=== PATIENT | female | born 1980 | race Caucasian/White ===

== ENCOUNTER 2022-06-12 12:48 | Outpatient (CLI) | payer OTHER, SELFPAY | END 2022-06-12 12:49 | disposition home or self-care (01) | LOC: RAD 12:49 | PROVIDERS: PCP Family Medicine; Visit Provider Internal Medicine Cardiovascular Disease | DX: R00.0 Tachycardia, unspecified (principal); I34.0 Nonrheumatic mitral (valve) insufficiency | CPT/HCPCS: 93306 ==

== ENCOUNTER 2022-06-29 08:04 | Outpatient (CLI) | payer OTHER, SELFPAY ==
--- NOTE | 2022-06-29 08:15 | CRLHL7_ITS ---
For Patients: As a result of the Century Cures Act, medical imaging exams and procedure reports are released immediately into your electronic medical record. You may view this report before your referring provider. If you have questions, please contact your health care provider. INDICATION: Abnormal uterine bleeding COMPARISON: none TECHNIQUE: 2D reese scale and color Doppler images were acquired of the pelvis using a transabdominal and transvaginal approach. FINDINGS: Sonographic images demonstrate a mildly enlarged uterus with a smooth outer contour. Uterus measures 11.3 cm in length by 6.1 cm in AP diameter by 7.4 cm in transverse dimension. The myometrium has a heterogeneous echotexture. The endometrial lining appears thickened and measures 20 mm in composite thickness. Anterior fundal intramural fibroid noted measuring 2.3 x 2.2 x 2.1 cm. The right ovary measures 2.8 x 2.0 x 2.4 cm in size and the left ovary measures 3.8 x 2.0 x 2.2 cm. The ovaries demonstrate normal arterial and venous blood flow on color Doppler analysis. There are no suspicious fluid collections within the cul-de-sac. A mildly complex left ovarian cyst is noted measuring 1.9 cm. Additional hyperechoic focus measuring 8 millimeters within the left ovary. IMPRESSION: Mildly enlarged and heterogeneous uterus with an intramural fibroid measuring 2.3 cm. The endometrium is diffusely thickened and measures 2 centimeters. Dictated by Kam Gould MD @ 06/29/2022 9:17:25 AM (Electronically Signed)
== END 2022-06-29 08:05 | disposition home or self-care (01) ==
PROVIDERS: PCP Family Medicine; Visit Provider Obstetrics & Gynecology
DX: N93.9 Abnormal uterine and vaginal bleeding, unspecified (principal); D25.1 Intramural leiomyoma of uterus
CPT/HCPCS: 76830; 76856

== ENCOUNTER 2022-06-30 10:10 | Emergency (ER) | payer OTHER, SELFPAY ==
[2022-06-30 10:30] VITALS: BP 135/92; PULSE 158; RESP 20; TEMP 36.3; O2SAT 96; BMI 40.0
--- NOTE | 2022-06-30 10:56 | ED.NURSE ---
ekg done, shows svt 150-160. pt placed on heart monitor. #20 sl placed R ac, blood drawn off iv start.
[2022-06-30 11:00] VITALS: BP 103/73; PULSE 158; RESP 12; O2SAT 98
--- NOTE | 2022-06-30 11:13 | ED_ITS ---
HPI - General Adult General Chief complaint: Arrhythmia/Palpitations Stated complaint: Heart palpitations Time Seen by Provider: 06/30/22 11:03 Source: patient History of Present Illness HPI narrative: Patient is a 42 year old woman with a longstanding history palpitations, since childhood. She says her mom and sister have the same problem, and her son now has similar problems. She is currently wearing a ZIO patch to further delineate the problem. She started having palpitations a couple hours prior to presentation, she was told by her regional vice president life sales the next time she had this to come in to get an EKG. She has never had an EKG capturing her palpitations prior to this. She says that she has never had syncope, does not get chest pain, but she does get occasionally lightheaded, gets sweaty and a little weak feeling. Does not get significantly short of breath. Sometimes these symptoms lasted couple of minutes, sometimes 8 or 9 hours. She is sometimes able to relieve them by lifting her arms over her head, Valsalva maneuver, deep breaths. She did not try those prior to coming in because she wanted to be able to get an EKG, but tells me since getting an EKG she has tried those in they have not helped. She denies any recent illness in the past couple of days, has not had any fevers or chills, chest pain or shortness of breath, vomiting or diarrhea, black or bloody stools, urinary symptoms. She has never had any medical intervention for these symptoms such as adenosine. Related Data Home Medications Medication Instructions Recorded Confirmed labetalol 200 mg tablet mg 06/30/22 levothyroxine 100 mcg tablet mcg 06/30/22 Previous Rx's Medication Instructions Recorded ruxolitinib 1.5 % topical cream 1 applic topical BID #60 grams 06/30/22 (Opzelura) Allergies Allergy/AdvReac Type Severity Reaction Status Date / Time No Known Allergies Allergy Verified 06/30/22 08:30 Review of Systems Status of ROS: Reports: 10 or more systems reviewed and unremarkable except as noted in History and below [facility] Medical History (Updated 06/30/22 @ 12:11 by Evy Frank MD) Hector's disease Surgical History (Updated 05/28/22 @ 11:05 by Galen Larose) History of dilation and curettage (2008) Family History (Updated 05/28/22 @ 11:06 by Galen Larose) Mother Cardiac arrhythmia Social History (Updated 05/28/22 @ 11:07 by Galen Larose) Narrative: does not drink alcohol does not have regular exercise regimen , 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 In general, an alert, nontoxic woman. Breathing easily. Head: Normocephalic, atraumatic. Eyes: Pupils are equal reactive. Extraocular movements are full. Conjunctivae are normal. ENT: Mucous membranes are moist. Throat is normal. Neck: Supple without lymphadenopathy. Heart: Tachycardic and regular without murmur. Lungs: Clear bilaterally. No increased work of breathing, crackles or wheezes. Abdomen: Soft and nontender. No organomegaly. Extremities: Well perfused. No edema. No calf tenderness. Pulses intact. Neurologic: Patient is alert and oriented to person and place. Speech is fluent. Face is symmetric. Moves all extremities equally. Affect: Normal. Skin: Warm and dry. Well perfused. Const: Vital Signs, click to edit/add: Vital Signs - 24 hr 06/30/22 10:30 06/30/22 11:00 06/30/22 11:30 Temperature 97.4 F L Pulse Rate [Pulse Oximeter] 158 H 158 H 152 H Respiratory Rate 20 12 Blood Pressure [Le ft Upper Arm] 103/73 100/88 Blood Pressure [Ri ght Upper Arm] 135/92 H Pulse Oximetry 96 98 99 Oxygen Delivery Me thod Room Air Room Air Room Air 06/30/22 11:36 06/30/22 11:36 Temperature Pulse Rate [Pulse Oximeter] 98 98 Respiratory Rate Blood Pressure [Le ft Upper Arm] 133/83 133/83 Blood Pressure [Ri ght Upper Arm] Pulse Oximetry 97 97 Oxygen Delivery Me thod Room Air Room Air Documenting provider has reviewed patient's vital signs: yes Course Course Hospital Course: On arrival, patient was placed on monitor and pulse oximetry. An EKG was done which by my review shows supraventricular tachycardia with a ventricular rate of 151 beats per minute. There are nonspecific ST changes but no acute signs of ischemia. Labs ordered including a CBC, metabolic panel, TSH and troponin. These are pending. I reviewed her records. She is scheduled to follow-up with Cardiology after her ZIO patch, which is to be removed on Wednesday of this week. Given that she has been in SVT now for a couple of hours, I think it is reasonable to try adenosine at this time. Patient was maintained on monitor, initially we gave 6 mg of adenosine, which slowed her rate to about 125 beats per minute, but she remained in a supraventricular tachycardia. I did not see any evidence of flutter waves at that rate. I elected to try 12 mg of adenosine. With 12 mg, she had some ventricular ectopy for about 8 beats, then converted to a sinus rhythm. A repeat EKG showed a normal sinus rhythm at a ventricular rate of 91 beats per minute. No acute ST segment changes by my review. Labs were normal in terms of her CBC and metabolic panel. Her troponin is 0. TSH is pending at this time. She is feeling well. I am going to let her go home and I will call her if the TSH is abnormal at all. She does take Synthroid at baseline. She also takes labetalol. Will have her continue that and have her follow up with Cardiology as planned. If she has recurrent episodes she can certainly return if they are persistent and not responding to her usual measures. If she has more severe symptoms such as chest pain, severe shortness of breath, fainting she should return regardless. Vital Signs Vital signs: Initial Vital Signs Temperature 97.4 F L 06/30/22 10:30 Temperature Source Temporal Artery Scan 06/30/22 10:30 Pulse Rate 158 H 06/30/22 10:30 Respiratory Rate 20 06/30/22 10:30 Respiratory Depth Normal 06/30/22 10:30 Blood Pressure 135/92 H 06/30/22 10:30 Blood Pressure Mean 106 06/30/22 10:30 Blood Pressure Position Supine 06/30/22 10:30 Pulse Oximetry 96 06/30/22 10:30 Oxygen Delivery Method 06/30/22 10:30 Vital Signs Temperature 97.4 F L 06/30/22 10:30 Pulse Rate 158 H 06/30/22 10:30 Respiratory Rate 20 06/30/22 10:30 Blood Pressure 135/92 H 06/30/22 10:30 Pulse Oximetry 96 06/30/22 10:30 Oxygen Delivery Method 06/30/22 10:30 Temperature 97.4 F L 06/30/22 10:30 Pulse Rate 98 06/30/22 11:36 Respiratory Rate 12 06/30/22 11:00 Blood Pressure 133/83 06/30/22 11:36 Pulse Oximetry 97 06/30/22 11:36 Oxygen Delivery Method 06/30/22 11:36 Medical Decision Making Lab Data Labs: Lab Results 06/30/22 06/30/22 06/30/22 Range/Units 10:55 10:55 10:55 WBC 5.80 (4.50-11.00) K/uL RBC 5.02 (4.00-5.20) m/uL Hgb 13.6 (12.0-16.0) gm/dL Hct 40.8 (33.0-51.0) % MCV 81 (80-100) fL MCH 27 (26-34) pg MCHC 33 (32-36) gm/dL RDW Coeff of Yaneth 14.8 (11.5-15.5) % Plt Count 268 (140-440) K/uL Neut % (Auto) 65.0 (42.0-72.0) % Lymph % (Auto) 23.3 (20-44) % Alexander % (Auto) 8.4 (0.0-11.0) % Eos % (Auto) 2.8 (0.0-7.0) % Baso % (Auto) 0.3 (0.0-3.0) % Neut # (Auto) 3.77 (1.7-7.0) K/uL Lymph # (Auto) 1.35 (0.90-2.90) K/uL Alexander # (Auto) 0.50 (0.00-0.90) K/UL Eos # (Auto) 0.16 (0.00-0.50) K/uL Baso # (Auto) 0.02 (0.00-0.30) K/uL Abs Immat Gran (auto) 0.01 (0.00-0.30) K/uL Sodium 140 (135-149) mmol/L Potassium 3.8 (3.6-5.1) mmol/L Chloride 108 (96-114) mmol/L Carbon Dioxide 23 (20-32) mmol/L BUN 14 (5-24) mg/dL Creatinine 0.7 (0.5-1.5) mg/dL Estimated Creat Clear 97.01 Estimated GFR 110 ml/min Glucose 104 (60-115) mg/dL Calcium 9.1 (8.4-10.6) mg/dL TSH 3.290 (0.270-4.200) uIU/mL POC Troponin I (0.01-0.04) ng/ml 06/30/22 Range/Units 10:55 WBC (4.50-11.00) K/uL RBC (4.00-5.20) m/uL Hgb (12.0-16.0) gm/dL Hct (33.0-51.0) % MCV (80-100) fL MCH (26-34) pg MCHC (32-36) gm/dL RDW Coeff of Yaneth (11.5-15.5) % Plt Count (140-440) K/uL Neut % (Auto) (42.0-72.0) % Lymph % (Auto) (20-44) % Alexander % (Auto) (0.0-11.0) % Eos % (Auto) (0.0-7.0) % Baso % (Auto) (0.0-3.0) % Neut # (Auto) (1.7-7.0) K/uL Lymph # (Auto) (0.90-2.90) K/uL Alexander # (Auto) (0.00-0.90) K/UL Eos # (Auto) (0.00-0.50) K/uL Baso # (Auto) (0.00-0.30) K/uL Abs Immat Gran (auto) (0.00-0.30) K/uL Sodium (135-149) mmol/L Potassium (3.6-5.1) mmol/L Chloride (96-114) mmol/L Carbon Dioxide (20-32) mmol/L BUN (5-24) mg/dL Creatinine (0.5-1.5) mg/dL Estimated Creat Clear Estimated GFR ml/min Glucose (60-115) mg/dL Calcium (8.4-10.6) mg/dL TSH (0.270-4.200) uIU/mL POC Troponin I 0.00 L (0.01-0.04) ng/ml Discharge Plan Discharge Clinical Impression: Supraventricular tachycardia Patient Disposition: Home, Self-Care Condition: Improved Instructions: Supraventricular Tachycardia (ED) Additional Instructions: Follow-up with Cardiology as planned. If you have recurrent episodes that do not respond to usual measures, you can return to the emergency department for additional treatment. If you have severe symptoms such as chest pain, significant shortness of breath, fainting, you should return. Prescriptions: No Action Opzelura 1.5 % cream 1 applic topical BID Qty: 60 3RF labetalol 200 mg tablet Label Comments: TAKE ONE TABLET BY MOUTH TWICE DAILY levothyroxine 100 mcg tablet Label Comments: TAKE ONE TABLET BY MOUTH ONE TIME DAILY Follow Up/Referrals: Gayla Hernandez MD [Primary Care Provider] - Stand Alone Forms: Runa Info Instructions
[2022-06-30 11:22] LABS: Basophils Absolute Auto 0.02 K/uL (0.00-0.30); Basophils Percent Auto 0.3 % (0.0-3.0); Eosinophils Absolute Auto 0.16 K/uL (0.00-0.50); Eosinophils Percent Auto 2.8 % (0.0-7.0); Hematocrit 40.8 % (33.0-51.0); Hemoglobin* 13.6 gm/dL (12.0-16.0); Immature Granulocytes Abs Auto 0.01 K/uL (0.00-0.30); Lymphocytes Absolute Auto 1.35 K/uL (0.90-2.90); Lymphocytes Percent Auto 23.3 % (20-44); Mean Corpuscular HGB Conc 33 gm/dL (32-36); Mean Corpuscular Hemoglobin 27 pg (26-34); Mean Corpuscular Volume 81 fL (80-100); Monocytes Percent Auto 8.4 % (0.0-11.0); Neutrophils Absolute Auto 3.77 K/uL (1.7-7.0); Platelet Count* 268 K/uL (140-440); RDW Coefficient of Variation % 14.8 % (11.5-15.5); Red Blood Count 5.02 m/uL (4.00-5.20)
[2022-06-30] MEDS: 0.9 % SODIUM CHLORIDE 1000 ml 1,000 ML IV (11:26)
[2022-06-30] MEDS: ADENOSINE 6 MG/2ML INJ IVP (11:27)
[2022-06-30 11:30] VITALS: BP 100/88; PULSE 152; O2SAT 99
--- NOTE | 2022-06-30 11:30 | ED.NURSE ---
6 mg adenosine brought hr director of accreditation 127- then hr increased again to 154.
[2022-06-30 11:32] LABS: Slide Review Reflex No
[2022-06-30] MEDS: ADENOSINE 6 MG/2ML INJ 12 MG IVP (11:35)
[2022-06-30 11:36] VITALS: BP 133/83; PULSE 98; O2SAT 97
[2022-06-30 11:46] LABS: Chloride* 108 mmol/L (96-114); Sodium* 140 mmol/L (135-149)
[2022-06-30 11:47] LABS: Potassium* 3.8 mmol/L (3.6-5.1)
[2022-06-30 11:49] LABS: Creatinine* 0.7 mg/dL (0.5-1.5); Est. Creatinine Clearance* 97.01; Estimated Glomerular Filt Rate 110 ml/min
[2022-06-30 11:50] LABS: Blood Urea Nitrogen* 14 mg/dL (5-24); Calcium* 9.1 mg/dL (8.4-10.6); Carbon Dioxide* 23 mmol/L (20-32); Glucose* 104 mg/dL (60-115)
--- NOTE | 2022-06-30 11:56 | ED.NURSE ---
did respond to 12 mg adenosine. hr showed 8 beats of v tach and then converted to nsr at 64.
== END 2022-06-30 12:25 | disposition home or self-care (01) ==
PROVIDERS: Emergency Provider Emergency Medicine; PCP Family Medicine
DX: I47.1 Supraventricular tachycardia (principal)
CPT/HCPCS: 36415; 80048; 84443; 84484; 85025; 93005; 96374; 96375; 99284; J0153; J7030

== ENCOUNTER 2022-08-06 10:22 | Outpatient (CLI) | payer OTHER, SELFPAY ==
--- OUTSIDE RECORDS SUMMARY | 2022-08-06 08:35 | XMS_ITS | Clinical Summary ---
:1980 Author Organization [employer] [facility] [place] [address] Care Team Providers Name Role Phone Gayla Hernandez MD Primary Care Provider [phone] Allergies No known active allergies Medications Medication Sig Dispensed Refills Start Date End Date Status ferrous sulfate 325 Take 1 0 10/02/2019 Active mg delayed release tablet by tablet mouth once daily with a meal. levothyroxine Take 100 mcg 0 05/29/2022 Ac tive (SYNTHROID) 100 mcg by mouth tablet once daily. Tranexamic Acid 650 TAKE 2 0 07/08/2022 Active mg tab TABLETS BY MOUTH THREE TIMES DAILY FOR 5 DAYS DURING MENSES. labetaloL Take 200 mg 0 05/14/2022 Active (TRANDATE) 200 mg by mouth two tablet times daily. amLODIPine Take 1 60 Tablet 1 08/03/2022 Active (NORVASC) 5 mg Tablet (5 tabletIndications: mg) by mouth HTN (hypertension) once daily. levothyroxine Take 1 90 tablet 3 07/13/2018 Disco ntinued (SYNTHROID) 50 mcg tablet by 2 ( *Patient states tabletIndications: mouth before no longer Hypothyroidism breakfast. taki ng/Not on (acquired) sending f acility list) aspirin chewable 81 Take 1 0 08/15/2019 Discontinued mg chewable tablet tablet by 2 ( *Patient states mouth once no longer daily with a taking/ Not on meal. sending fa cility list) Take 1 0 10/02/2019 Discontin ued vitamin-folic acid tablet by 2 ( *Patient states 1 mg ( RX) mouth once no longer tablet/capsule daily. takin g/Not on sending fa cility list) verapamil (VERELAN) Take 1 30 capsule 5 11/16/2019 07/08/20 2 Discontinued 120 mg capsule by 2 (*Discont inued Controlled-Release mouth every by another capsuleIndications: morning. clinician) induced hypertension, verapamiL (VERELAN) Take 1 30 Capsule 6 07/08/2022 08/04/20 2 Discontinued 120 mg Capsule (120 2 (*IP Controlled-Release mg) by mouth Discontinued) capsuleIndications: every Tachycardia morning. Active Problems Problem Noted Date Recurrent loss in patient in second trimester, 07/10/2019 antepartum Overview: Recurrent loss (RPL 6 SAB's): negative thrombophilia lab workup (December 2018) Morbid obesity with BMI of 40.0-44.9, adult 07/10/2019 Overview: Normal appearing Level II sonogram /Feta l echocardiogram (MPP: 07.10.2019 = 20w0d) Elderly multigravida in second trimester 07/10/2019 Overview: Declined serum aneuploidy screening History of gestational hypertension 07/10/2019 High risk due to recurrent loss, s econd trimester 05/17/2019 Overview: Formatting of this note is dif ferent from the original. Component Latest Ref Rng & Units 10/31/2019 Vaginal/Rectal OB Strep B PCR Negative Estimated Date of Delivery: 11/27/19 Patient's last menstrual period was 04/0 11/2018 (exact date). Last Tdap- Declined Last Flu vaccine- Declined Glucose (GTT) result- Component Latest Ref Rng & Units 08/15/2019 HEMOGLOBIN 12.0 - 16.0 g/dL 11.0 (L) MCV 80 - 100 fL 81 TSH 0.35 - 4.94 uIU/mL 2.34 GLUCOSE,GESTATIONAL 65 - 139 mg/dL 115 20 week US:IMPRESSION: Intrauterine at 20w 0d. presentation is Variable. EFW 334 grams, percentile: 52. Growth parameters and estimated we ight are appropriate for gestational age. No major structural anomalies identified . No markers for aneuploidy identified. The echocardiogram was read by [facility] as normal. The amniotic fluid volume appears normal . Placental location: Fundal, right latera l There is no evidence of placenta previa. The cervical length is 3.9 cm. No Known Allergies OB History Para Term AB Living 16 6 6 0 9 6 SAB TAB Ectopic Multiple Live Births 9 0 0 0 6 # Outcome Date GA Lbr Herb/2nd Weight Sex Delivery Anes PTL Lv 16 Current 15 Term 07/10/16 38w2d Vag JAVID 14 10/2014 4w0d 13 10/2013 5w0d 12 04/2012 14w0d 11 05/2011 13w0d 10 03/2011 6w0d 9 SAB 09/2010 19w0d 8 Term 09/20/09 4.05 kg (8 lb 15 oz) F V ag N JAVID 7 10/2008 17w0d 6 SAB 05/2008 10w0d 5 SAB 08/2007 8w0d 4 Term 09/10/06 4.05 kg (8 lb 15 oz) F V ag N JAVID 3 Term 04/25/04 40w0d 4.08 kg (9 lb) M V ag N JAVID 2 Term 02/28/02 40w0d 3.52 kg (7 lb 12 o z) M Vag N JAVID 1 Term 11/18/00 40w0d 4.17 kg (9 lb 3 oz ) M Vag N JAVID Create lab flowsheet for OB labs- Component Latest Ref Rng & Units 05/01/2019 019 05/01/2019 4:31 PM 4:31 PM 4:31 PM ANTIBODY SCREEN Negative Negative SPECIMEN EXPIRATION DATE/TIME 05/04/19 23:59 HEMOGLOBIN 12.0 - 16.0 g/dL 11.9 (L) MCV 80 - 100 fL 78 (L) RUBELLA IGG ANTIBODY Positive 6.44 HEMOGLOBIN A1C SCREENING <=6.4 % 5.2 ABORH O Rh Positive HBSAG Nonreactive Nonreactive HEPATITIS C ANTIBODY Non-Reactive Non-Reactive HIV-1/HIV-2 ANTIBODY Non-Reactive Non-Reactive TREPONEMA PALLIDUM Negative Negative Past Medical History: Diagnosis Date ? ? Hypertension in ? ? Hypothyroidism (acquired) 03/02/2017 ? ? Supervision of other high risk pregnancies, first trimester 12/13/2015 Past Surgical History: Procedure Laterality Date ? ? DILATION AND CURETTAGE x2 after incomplete abs No data on file. Problems (from 05/01/19 to pre sent) No problems associated with this episod e. Nini Fitch, RNC.....05/17/2019 7:52 AM Hypothyroidism (acquired) 03/02/2017 Overview: +TPO AB; quit taking medicine. Restartin g meds 10/06/2017, advised to have TSH checked in 6-8 weeks Preexisting hypertension complicating , antep artum, second 07/14/2016 trimester Overview: Not currently on low dose ASA prophylaxi s Not currently on antihypertensive regime n Resolved Problems Problem Noted Date Resolved Date MPP consult 01/09/2016 09/27/2017 Overview: REASON FOR CONSULT: AMA, recurrent pregn sadi losses GESTATIONAL AGE: ZACH: 07/22/16 /PARITY: TODAY'S APPOINTMENT: U/S and consult PRIMARY DIAGNOSIS: History of 9 SABs, 5 term deliveries LAST GROWTH: Viability U/S 01/06/16, 12w 1d Beta HcG n oted to be decreasing Viability U/S 12/17/15, 8w 6d TESTING PLANS: REFERRING PHYSICIAN & PHONE: Dr Chayo Anna [facility] ([phone]) SPECIALISTS & PHONE: HENNA: CARE COORDINATION: MEDS: Progesterone BLOOD TYPE/LABS: O positive GENETICS: declined PLAN OF CARE: state, incidental 12/26/2015 09/27/2017 Overview: Dr Dan for baby Declines flu shot 12/26/2015 Supervision of other high risk pregnancies, first trimester 12/13/2015 09/27/2017 Overview: Group B Strep NEGATIVE 06/22/2016 Wishes delayed cord clamping Declines Hepatitis vaccine, Vitamin K, e ye ointment. RECURRENT LOSS W/O CURRENT 06/10/2011 09/27/2017 Multiparity 06/10/2011 09/27/2017 ANEMIA, SECONDARY TO ACUTE BLOOD LOSS 06/10/2011 Encounters Date Type Specialty Care Team Description 08/03/2022 Anesthesia Event Cb Espana Jr., Tito Simpson, PECAN GROWER 08/03/2022 - Hospital Encounter Raheem Leyva NRT (AV ced re-entry tachycardia) (HC) (Primary Dx); 08/04/2022 MD Rafa HTN (hypertension) Rafa Vivar MD Discharge Summary - Jonel Wayyajaira ANNETTE Hanson - 08/03/2022 6:21 PM CDT [facility] Discharge Summary DOA: 08/03/2022 DOD: 08/03/2022 PRIMARY CARE PROVIDER Gayla Hernandez MD HOSPITAL COURSE Chayo Ornelas is a pleasan t 42 y.o. female with documented SVT, hypothyroidism, obesity, and hypertension. Ms. Ornelas notes a longstanding history of palpitations. Aout 1-2 times a month, she will get more profound palpitations w ith a heart rates in the 170-200 bpm range. During this time, she will feel palpitations described as a hard heartbeat. She will feel palpitations into her neck and get light headed to the point she has to sit down. She denies any history of syncope. Following further discussion of management options in the Arrhythmia Clinic, she elected to proceed with an EP study and possible ablation. On 08/03/2022, Ms. Ornelas unde rwent an EP study and ablation for typical atrioventricular ced reentrant tachycardia. S: Resting in bed. Denies co ncern. EXAM BP 155/91 Pulse 84 Temp (!) 96.5 ??F (35.8 ??C) (Tympanic) Resp 18 Ht 1.676 m (5' 6) Wt 113.2 kg (249 lb 8 oz) LMP 07/10/2022 SpO2 99% BMI 40.27 kg/m?? Patient Vitals for the past 72 hrs: Weight 08/03/22 1353 113.2 kg (249 lb 8 oz) Cor: Regular rate and rhythm with no noted murmur. Resp: CTA ellis. Ext: Pulses present and equa l ellis. No LE edema. Skin: WDI. Incision: Right femoral acce ss site c/d/i. No bleeding/hematoma. Neurologic: A&O x3. DIAGNOSTICS Telemetry (personally review ed): SR, VR 80s Echocardiogram 06/12/2022 Final Impressions: 1. Normal LV size, mildly i ncreased wall thickness, normal function with an estimated EF of 65 - 70%. 2. Right ventricular cavity size is normal, global systolic RV function is normal. 3. The mitral valve is norm al, mild mitral regurgitation. 4. Normal estimated PA and central venous pressures. Labs: Recent Labs 08/03/22 1400 WBC 6.8 RBC 4.54 HGB 12.7 HCT 39.0 MCV 86 MCH 28.0 MCHC 32.6 PLT 231 MPV 10.2 Recent Labs 08/03/22 1400 SODIUM 137 POTASSIUM 3.6 CHLORIDE 106 [id number] 22 BUN 13 CREATININE 0.80 CALCIUM 8.9 GLUCOSE 87 Recent Labs 08/03/22 1400 PLT 231 DISCHARGE MEDICATIONS Current Discharge Medication List STOP taking these medication s verapamiL (VERELAN) 120 mg Controlled-Release capsule Comments: Reason for Stopping: START taking these medicatio ns Details amLODIPine (NORVASC) 5 mg ta blet Take 1 Tablet (5 mg) by mouth once daily. Associated Diagnoses: HTN ( hypertension) CONTINUE these medications w [facility] have NOT CHANGED Details ferrous sulfate 325 mg delay ed release tablet Take 1 tablet by mouth once daily with a meal. labetaloL (TRANDATE) 200 mg tablet Take 200 mg by mouth two times daily. levothyroxine (SYNTHROID) 10 0 mcg tablet Take 100 mcg by mouth once daily. Tranexamic Acid 650 mg tab T MIKHAIL 2 TABLETS BY MOUTH THREE TIMES DAILY FOR 5 DAYS DURING MENSES. IMPRESSION SVT - 08/03/2022: SP ablation fo r typical AVNRT Hypertension Hypothyroidism Obesity Hypertension PLAN 1. Discontinue verapamil 2. Start amlodipine 5 mg maikel ly 3. Continue remainder of zuleima or to admission pharmacologic agents 4. Follow up with primary ca re provider in 5-7 days for femoral access site assessment 5. Follow up in the Arrhythm ia Clinic in 3-4 months 6. Anticipate discharge home later this evening (~ 2100) pending ambulation and femoral access site stability Destinee Way NP [facility] Cardiac Electrophysiology 08/03/2022 Travel 07/30/2022 Telephone Chelsea Baker EP Pro cedure RN 07/29/2022 Nurse/Clinic Staff Only Test ing (Pre-procedure COVID test/) 07/29/2022 Travel 07/22/2022 Telephone Raheem Leyva Question s MD Rafa 07/21/2022 Office Visit Raheem Leyva Other (I nitial Office MD Rafa Visit- Ref Dr. Oswaldo STONEP dx: highly symptomatic SVT refractory to l abetalol: consideration o f ablation (probable AVNRT , AVRT)//PCP- Gayla Mccarthy MD ) 07/21/2022 Travel 07/10/2022 Travel 07/02/2022 Telephone Edinson Chacon Results (ZI O/) MD Bal 06/23/2022 Telephone Edinson Chacon Results (Ec ho/) MD Bal 06/12/2022 Orders Only <No scans attac hed> 06/05/2022 Office Visit Edinson Chacon MD 06/05/2022 Orders Only Renita Hercules <No scans stacie ched> 05/14/2022 Lab Requisition Gayla Hernandez MD from Last 3 Months Immunizations Name Administration Dates Next Due Influenza A (H1N1), Inactivated (Age >=3 Years) 09/18/2009 Influenza, IIV3 (Age >=3 years) 09/22/2007, 08/25/2004 Family History Medical History Relation Name Comments Good Health Brother Cancer-prostate Father Heart Disease Father Hypertension Father Good Health Maternal Grandfather Good Health Maternal Grandmother Good Health Mother Good Health Paternal Grandfather Hypertension Paternal Grandmother Good Health Sister 1 Good Health Sister 2 Good Health Sister 3 Relation Name Status Comments Brother Father Maternal Grandfather Maternal Grandmother Mother Paternal Grandfather Paternal Grandmother Sister 1 Sister 2 Sister 3 Social History Tobacco Use Types Packs/Day Years Used Date Never Smoker Smokeless Tobacco: Never Used Tobacco Cessation: Counseling Given: Yes Alcohol Use Standard Drinks/Week Comments No 0 (1 standard drink = 0.6 oz pure alcoho l) Sex Assigned at Date Recorded Not on file COVID-19 Exposure Response Date Recorded In the last 10 days, have you been in contact with No / Unsu re 08/03/2022 10:30 AM CDT someone who was confirmed or suspected to have Coronavirus/COVID-19? Obstetrics History Para Term AB IAB SAB Ectopic Multiple Living Live Births 16 6 6 0 9 0 9 0 0 6 6 Date Outcome GA Total Labor/2nd/3rd Weight Sex Delivery Anes PTL Javid A 1 A5 Name Clin Labor 11/18 Term 40w 4.17 kg M Vag N Judy /1999 0d (9 lb 3 ng oz) 02/28 Term 40w 3.52 kg M Vag N Judy /2001 0d (7 lb ng 12 oz) 04/25 Term 40w 4.08 kg M Vag N Judy /2003 0d (9 lb) ng 09/10 Term 4.05 kg F Vag N Judy /2005 (8 lb ng 15 oz) 09/10 SAB 8w0 07 d 06/10 SAB 10w 08 0d 11/10 SAB 17w 08 0d 09/20 Term 4.05 kg F Vag N Judy /2008 (8 lb ng 15 oz) 10/11 SAB 19w 10 0d 04/10 SAB 6w0 11 d 06/10 SAB 13w 11 0d 05/11 SAB 14w 12 0d 11/10 SAB 5w0 13 d 11/10 SAB 4w0 14 d 07/10 Term 38w Vag Judy /2015 2d ng Last Filed Vital Signs Vital Sign Reading Time Taken Comments Blood Pressure 153/93 08/03/2022 10:00 PM CDT Pulse 84 08/03/2022 8:00 PM CDT Temperature 36.5 ??C (97.7 ??F) 08/03/2022 8:00 PM CDT Respiratory Rate 18 08/03/2022 8:00 PM CDT Oxygen Saturation 96% 08/03/2022 8:00 PM CDT Inhaled Oxygen Concentration - - Weight 113.2 kg (249 lb 8 oz) 08/03/2022 1:53 PM CDT Height 167.6 cm (5' 6) 08/03/2022 1:53 PM CDT Body Mass Index 40.27 08/03/2022 1:53 PM CDT Plan of Treatment Health Maintenance Due Date Last Done Comments COVID-19 vaccine series (#1) 1980 Tdap 1990 Tetanus booster 1999 Depression screening for age 12+ 05/16/2020 05/16/2019, 08/2019, 03/01/2017, Additional history exists Influenza for age 9-49 07/23/2022 09/18/2009, 09/22/2007, 08/25/2004 BMI (ht and wt on same day) for 07/21/2023 07/21/2022, 12/2 04/2019, age 18+ 05/16/2019, Additional history exists Pap test for age 21-65 05/14/2025 05/14/2022, 05/14/2022, 05/01/2011 Hepatitis C screening for age Completed 05/01/2019 18-79 Goals Goal Patient Goal Associated Recent Patient-Stated? Author Type Problems Progress BLOOD PRESSURE Blood Pressure No Whitley Alcocer - Maintains BP MD Mirna less than 130/80 Procedures Procedure Name Priority Date/Time Associated Diagnosis Comme nts EKG 12 LEAD CARLEE 08/03/2022 6:07 PM Results f or this CDT procedure are i n the results section. EP STUDY /ABLATION Routine 08/03/2022 3:36 PM Res ults for this CDT procedure are i n the results section. CBC W PLT NO DIFF Preop 08/03/2022 2:00 PM Resu lts for this CDT procedure are i n the results section. BASIC METABOLIC Preop 08/03/2022 2:00 PM Result s for this PANEL CDT procedure are i n the results section. EXTRA TUBE GOLD/SST Today 08/03/2022 1:53 PM CDT EKG 12 LEAD Preop 08/03/2022 1:50 PM Results f or this CDT procedure are i n the results section. URINE Preop 08/03/2022 11:52 Results for this AM CDT procedure are i n the results section. COVID 19 Routine 07/29/2022 9:43 AM Pre-procedure lab Resu lts for this CDT exam procedure are i n the results section. COVID 19 COLLECTION Routine 07/29/2022 9:43 AM Pre-procedure l ab Results for this CDT exam procedure are i n the results section. EKG 12 LEAD Routine 07/21/2022 11:20 Tachycardia Results for this AM CDT procedure are i n the results section. ECHO COMPLETE WO Routine 06/12/2022 1:30 PM Tachycardia Resul ts for this CONTRAST CDT procedure are i n the results section. EXTENDED HOLTER Routine 06/05/2022 Tachycardia Results for this procedure are i n the results section. LAB TRACKING EVENT Routine 05/14/2022 8:06 AM CDT OPTOMETRIC TECH THIN PREP PAP Routine 05/14/2022 8:06 AM Resu lts for this SCREEN IMAGED CDT procedure are in the results section. HPV THIN PREP Routine 05/14/2022 8:06 AM Results for this CDT procedure are i n the results section. from Last 3 Months Results ECG TODAY (08/03/2022 6:07 PM CDT)Only the most recent of3 resultswithin the time period is included. Component Value Ref Range Test Analysis Performed Pathologis t Method Time At Signature Interpretation Normal sinus rhythm BEYON D NOW Low voltage QRS Cannot rule out Inferior infarct , age undetermined Cannot rule out Anterior infarct (cited on or before 2021) Abnormal ECG When compared with ECG of 03-AUG-2022 13:50, No significant change was found Ventricular Rate 75 BPM BEYOND NOW Atrial Rate 75 BPM BEYOND NOW P-R Interval 164 ms BEYOND NOW QRS Duration 88 ms BEYOND NOW QT 388 ms BEYOND NOW QTc 433 ms BEYOND NOW P [place] 65 degrees BEYOND NOW R [place] 3 degrees BEYOND NOW T [place] 25 degrees BEYOND NOW Specimen Anatomical Collection Method Collection Time Receive d Time (Source) Location / / Volume Laterality 08/03/2022 6:07 PM 5:36 CDT PM CDT Narrative [facility] NOW - 08/04/2022 5:36 PM CDT Test Indication: POST OP Destinee Way NEWS TECHNICAL DIRECTOR EKG ORD Performing Organization Address City/State/ZIP Code Phon e Number BEYOND NOW [place], [place] EP STUDY /ABLATION (08/03/2022 3:36 PM CDT) Anatomical Region Laterality Modality X-Ray Angiography, X -Ray Angiography Specimen (Source) Anatomical Collection Method Collection Time Re ceived Time Location / / Volume Laterality 08/03/2022 3:36 PM CDT Narrative This result has an attachment that is no t available. Transcriptions Rafa Vivar MD - 08/03/2022 4 :51 PM CDT [facility] Electrophysiology Procedure Report Name: CHAYO ORNELAS Event Date: 022 [employer] ID #: [id number] Date: Gender: Female Age: 42 AILIN #: [id number] Procedure Performed By: RAFA VIVAR [facility] Primary Family Consumer Science Teacher: EDINSON CHACON Primary Beater Room Supervisor: ISAEL LEYVA Referring Physician: Primary Care Physician: GAYLA HERNANDEZ Summary / Conclusions 1. Typical (slow-fast) AVNRT induced 2. Successful slow pathway modification performed 3. No further inducible tachycardia post ablation 4. Otherwise normal EPS/sinus node funct ion/AVnode function. No evidence for accessory pathway. Recommendations / Plan Bedrest for 2 hours Discharge later today if stable Stop verapamil Resume labetolol for htn Start norvasc 5mg qd for htn Pre-Operative Diagnosis ? SVT (Supraventricular Tachycardia) Post-Operative Diagnosis ? AVNRT, TYPICAL SLOW-FAST Indications ? Same as Pre-operative diagnosis Consent & Crestline Protocol Crestline protocol was followed. TIME OU T conducted just prior to starting procedure confirmed patient identity, site/side, procedure, patient position, and availability of correct equipment and implants (if applicable). The risks, benefits, and alternatives of the procedure were discussed with the patient and written informed consent was obtained. Procedure Description A) Anesthesia was provided by the anesth esiologist. The catheter insertion sites were prepped and draped in the usual sterile fashion. Local anesthesia of the cutaneous and subcutaneous tissue was achieved. B) 12-lead surface electrocardiogram and intracardiac electrograms were displayed in real time and recorded. A comprehensive electrophysiology study was performed which included pacing and recording from the atrium, HIS bundle electrogram recording, and pa cing and recording from the ventricle. The etiology of the arrhythmia was determined with the use of intracardiac electrogram analysis and Carto for 3D mapping. The decision was made to proceed with catheter based ablation. C) At the end of the procedure, all cath eters were removed. The patient was transported in stable condition to the recovery area for further monitoring and sheath removal. Procedure Comments: 1. NSR was present at baseline. 2. SVT induction: EP testing revealed th e presence of dual AV ced physiology with single atrial extrastimuli. In the baseline state, AVNRT was readily inducible with single PACs (600-280ms). 3. Confirmation of tachycardia etiology was achieved using the following criteria: the presence of dual atrioventricular node physiology, the induction of tachycardia was dependent upon a critical AH delay, the ventricular-atrial interval during tachy cardia was < 70ms, the retrograde atrial activation was concentric and midline, the tachycardia was entrained from the ventricle with an observed qzustoincsj-tjeqiv-ebvwtakbrsv response upon termination of pacing. The SA-VA was >85ms, and the PPI-TCL was >115ms. 4. Ablation: Carto was used for mapping of the slow pathway. Ablation was performed in the posterior to mid position within the triangle of Lopez. During ablation, accelerated junctional rhythm was observed on multiple occasions. Occasionally, rapid junctiona l was observed with retrograde fast pathway block, and ablation was immediately stopped. However, there was never any evidence for antegrade fast pathway conduction disturbance. There was noted that this observation oc curred only once the surpoint values reached over 400 suggesting a deeper segment of the fast pathway. This region was >2.5cm from the HIS bundle. Ablation was performed within this area until no further atrial electr ograms were observed. 5. After a wait period, isoproterenol wa s initiated. A repeat electrophysiology study was performed which failed to induce atrioventricular node tachycardia. Single avnode echo beats only were observed. Electrophysiology Study Data Basic Intervals Study State Underlying Rhythm Cycle Ngozi th [place] PA AH HV QRS [place] QRS Morphology Baseline NSR 667 170 116 50 Post Ablation NSR 703 181 Antegrade 1:1 AV Node Function Study State Pacing Site AV Node SCL 1:1 AH HV Dual AVN Physiology? AVN Fast 1:1 AVN Slow 1:1 Wenkebach Cycle Length Baseline CS 390 380 Refractory Periods Study State Pacing Site Paced Cycle Ngozi th Paced Cycle ERP AVN ERP Dual Node Physiology? AVN ERP (fast) AVN ERP (slow) Post Ablation CS Study Events Atrial 600 240 Arrhythmias Study State Arrhythmia Type Arrhythmia C ycle Length Induction Method Baseline AVNRT (S-F) 440 PES Ablation Data AVNRT Energy Source Ablation Catheter Used Rhy thm During Ablation # of Attempts Max Breaux Max Temp. Result RF EZ Steer ThermoCool, 3.5mm NSR 15 35 31 Success The slow AV ced pathway was mapped and ablated. Comments: total ablation time = 398 Catheter Use Catheter Type Catheter Description Inser tion Site Intracardiac Site Sheath Size Sheath Type Sheath Description Diagnostic Octapolar, D curve, 2 mm Std Deflectable Cath Right Femoral Vein HBE 8fr Standard Sidearm Ablation EZ STEER Bidir. ThermoCool, 3.5 mm tip, Thermocouple, D-F curves Right Femoral Vein Map/Abl 8Fr Standard Sidearm Diagnostic/Map DecaNav F-Curve Decapolar 2-8-2 spacing Right Femoral Vein CS 7 Fr Standard Sidearm Complications ? No complications Procedure(s) Performed ? SVT Ablation ? 3D Mapping ? CS/LA Catheter pace/recording Auxiliary Device Mapping System 1: Carto Procedure Detail Estimated Blood Loss: < 50 ml Specimen Collected: None Level of Sedation Achieved: See Anesthes ia Note Total Flouro Time: 0 FOUNTAIN VENDING MECHANIC Total Flouro Dose: 0 mGy Staff Name Role Rafa Vivar Beater Room Supervisor Edy Mas RN Nurse Popeye James EPAnne Scrub [facility] EPT Monitor Medications Ordered and Administered Start Time Stop Time Medication Dose Uni ts Route Ordered By Given By 15:40 0.5% Bupivicaine 15 mL Subcut MD Rafa Harmon MD 15:40 1% Lidocaine Hydrochloride 15 mL S ubcut MD Rafa Lange MD 15:42 Heparin 7000 Units IV MD Edy Bhandari RN 16:02 Isoproterenol (Isuprel) 2 mcg per min IV MD Edy Lange RN 16:10 Isoproterenol (Isuprel) 0 mcg per min IV MD Edy Lange RN The anesthesia service monitored the pat ient?s conscious sedation during the procedure. The medications listed above were verbal ly ordered by me and read back to me as documented above. Refer to the hemodynamic procedure log r eport for additional case details. electronically signed on 08/03/2022 4:51 :15 PM with status of Final Rafa Vivar MD Beater Room Supervisor [facility] [address] [place] [address] (p) [phone](f) Raheem Leyva MD CV IMAGING CBC with Platelet no Diff (08/03/2022 2:00 PM CDT) P athologist Signature WHITE BLOOD 6.8 4.5 - 11.0 08/03/2022 [facility] COUNT thou/cu mm 2:29 PM CDT [facility] HOSPITAL LABORATORY RED BLOOD COUNT 4.54 4.00 - 08/03/2022 [facility] 5.20 2:29 PM CDT LABORATORY-CENT mil/cu mm RAL LABORATORY HEMOGLOBIN 12.7 12.0 - 08/03/2022 [facility] 16.0 g/dL 2:29 PM CDT LABORATORY-CENT [facility] LABORATORY HEMATOCRIT 39.0 33.0 - 08/03/2022 [facility] 51.0 % 2:29 PM CDT LABORATORY-CENT [facility] LABORATORY MCV 86 80 - 100 08/03/2022 [facility] fL 2:29 PM CDT LABORATORY-CENT [facility] LABORATORY MCH 28.0 26.0 - 08/03/2022 [facility] 34.0 pg 2:29 PM CDT LABORATORY-CENT [facility] LABORATORY MCHC 32.6 32.0 - 08/03/2022 [facility] 36.0 g/dL 2:29 PM CDT LABORATORY-CENT [facility] LABORATORY RDW 14.1 11.5 - 08/03/2022 [facility] 15.5 % 2:29 PM CDT LABORATORY-[facility] LABORATORY PLATELET COUNT 231 140 - 440 08/03/2022 [facility] thou/cu mm 2:29 PM CDT LABORATORY-[facility] LABORATORY MPV 10.2 6.5 - 11.0 08/03/2022 [facility] fL 2:29 PM CDT LABORATORY-[facility] LABORATORY NRBC 0.0 % 08/03/2022 [facility] 2:29 PM CDT LABORATORY-[facility] LABORATORY ABS NRBC 0.0 thou /cu 08/03/2022 [facility] mm 2:29 PM CDT LABORATORY-[facility] LABORATORY Specimen Anatomical Collection Method / Collection Time Recei james Time (Source) Location / Volume Laterality Blood BLOOD SPECIMEN / Venipuncture / 08/03/2022 2:00 2021 2:08 Unknown Unknown PM CDT PM CDT Raheem Leyva MD HEMATOLOGY Performing Organization Address City/State/ZIP Code Phon e Number [facility] [address] [place] [address] LABORATORY-CENTRAL 2000 LABORATORY Basic Metabolic Panel (08/03/2022 2:00 PM CDT) P athologist Signature SODIUM 137 135 - 145 08/03/2022 [facility] mmol/L 2:35 PM CDT LABORATORY-[facility] LABORATORY POTASSIUM 3.6 3.5 - 5.0 08/03/2022 [facility] mmol/L 2:35 PM CDT LABORATORY-[facility] LABORATORY CHLORIDE 106 98 - 110 08/03/2022 [facility] mmol/L 2:35 PM CDT LABORATORY-[facility] LABORATORY CO2,TOTAL 22 21 - 31 08/03/2022 [facility] mmol/L 2:35 PM CDT LABORATORY-[facility] LABORATORY ANION GAP 9 5 - 18 08/03/2022 [facility] 2:35 PM CDT LABORATORY-[facility] LABORATORY GLUCOSE 87 65 - 100 08/03/2022 [facility] mg/dL 2:35 PM CDT LABORATORY-[facility] LABORATORY CALCIUM 8.9 8.5 - 10.5 08/03/2022 [facility] mg/dL 2:35 PM CDT LABORATORY-[facility] LABORATORY BUN 13 8 - 25 08/03/2022 [facility] mg/dL 2:35 PM CDT LABORATORY-[facility] LABORATORY CREATININE 0.80 0.57 - 08/03/2022 [facility] 1.11 mg/dL 2:35 PM CDT LABORATORY-CENT [facility] LABORATORY BUN/CREAT RATIO 16 10 - 20 08/03/2022 [facility] 2:35 PM CDT LABORATORY-CENT [facility] LABORATORY eGFR >90 >90 08/03/2022 [facility] mL/min/1.7 2:35 PM CDT LABORATORY-CENT 3m2 RAL LABORATORY Comment: As of 2022, eGFR is calcu lated by the CKD-EPI creatinine equation without race adjustment. eGFR can be inf luenced by muscle mass, exercise, and diet. The reported eGFR is an estimation only and is only applicable if the renal function is stable. Specimen Anatomical Collection Method / Collection Time Recei james Time (Source) Location / Volume Laterality Blood BLOOD SPECIMEN / Venipuncture / 08/03/2022 2:00 2021 2:08 Unknown Unknown PM CDT PM CDT Raheem Leyva MD CHEMISTRY Performing Organization Address City/State/ZIP Code Phon e Number [employer] [address] [place] [address] LABORATORY-CENTRAL 2000 LABORATORY EXTRA TUBE GOLD/SST (08/03/2022 1:53 PM CDT) Specimen Anatomical Collection Method / Collection Time Recei james Time (Source) Location / Volume Laterality Blood BLOOD SPECIMEN / Non-Lab 08/03/2022 1:53 08/03/20 22 2:39 Unknown Venipuncture / PM CDT PM CDT Unknown Raheem Leyva MD LABORATORY Performing Organization Address City/State/ZIP Code Phon e Number [facility] [address] [place] [address] LABORATORY-CENTRAL 2000 LABORATORY Urine (08/03/2022 11:52 AM CDT) Analysis Performed At Patho logist Time Signature ,URIN Negative Negative 08/03/2022 [facility] E 12:01 PM CDT LABORATORY-GURJIT TRAL LABORATORY Specimen Anatomical Collection Method Collection Time Receive d Time (Source) Location / / Volume Laterality Urine URINE SPECIMEN / Non-Blood / 08/03/2022 11:52 022 Unknown Unknown AM CDT 11:52 AM CDT Raheem Leyva MD URINE Performing Organization Address City/[facility] Phon e Number [facility] [address] [place] [id number] LABORATORYCENTRAL 2000 LABORATORY COVID 19 (07/29/2022 9:43 AM CDT) Analysis Performed At Path logist Time Signature COVID 19 Negative Negative 07/31/2022 [facility] 6:08 AM CDT LABORATORY-[facility] MOLECULAR TRAL LABORATORY Comment: All PCR tests are subject to fa lse negative result due to variability in viral load and collection technique. A n egative result does not rule out a SARS-CoV-2 infection. Clinical correlation required . Specimen Anatomical Location / Collection Method Collection Minh e Received Time (Source) Laterality / Volume Other SPECIMEN FROM Non-Blood / 07/29/2022 9:43 07/30/2022 6:55 NASOPHARYNGEAL Unknown AM CDT AM CDT STRUCTURE / Unknown Narrative [facility] LABORATORY-CENTRAL LABORAT ORY - 07/31/2022 6:08 AM CDT This test has been authorized by FDA und er an Emergency Use Authorization (EUA). This test is only authorized for the duration of time the declaration that circumstances exist justifying the authorization of th e emergency use of in vitro diagnostic tests for detection of SARS-CoV-2 virus and/or diagnosis of COVID-19 infection under section 564(b)(1) of the Act, 21 U.S.C. 360bbb-3(b)(1), unless the authorization is terminated or revoked sooner. Raheem Leyva MD MICROBIOLOGY Performing Organization Address City/State/ZIP Code Phon e Number [employer] [address] [place] [address] LABORATORY-CENTRAL 2000 LABORATORY COVID 19 COLLECTION (07/29/2022 9:43 AM CDT) [facility] Method Time Signature TESTING [facility] 07/30/2022 [facility] LABORATORY Laboratory 6:56 AM CDT LABORATORY-CE NTRAL LABORATORY Comment: Specimen submitted to [facility] for testing. Specimen Anatomical Location / Collection Method Collection Imnh e Received Time (Source) Laterality / Volume Other SPECIMEN FROM Non-Blood / 07/29/2022 9:43 07/29/2022 9:46 NASOPHARYNGEAL Unknown AM CDT AM CDT STRUCTURE / Unknown Raheem Leyva MD SEND OUTS Performing Organization Address [facility] Phon e Number [employer] [address] [place] [address] [place] [address] LABORATORY-CENTRAL 2000 LABORATORY ECHO COMPLETE WO CONTRAST (06/12/2022 1:30 PM CDT) P athologist Signature AORTIC VALVE 4 mmHg MEAN PG EJECTION 73 % FRACTION PEAK TR 2.2 m/s VELOCITY LVEDD 5.1 cm EJECTION 65 - 70% FRACTION Anatomical Region Laterality Modality HEART Ultrasound Specimen (Source) Anatomical Collection Method Collection Time Re ceived Time Location / / Volume Laterality 06/12/2022 1:06 PM CDT Narrative 06/12/2022 2:16 PM CDT ECHOCARDIOGRAM CHAYO ORNELAS ? Accessi on#: ?? [id number] : ?1980 42 years Study Date: ?? 06/12/2022 1:06:08 PM Gender: F ?BP: ? 145/99 mmHg Height: 168.00 cm ?BSA: ?2.18 m? ?? Weight: 111.00 kg ?Tech: ? MCK ? Referring MD: EDINSON CHACON Site: ? [facility] Reading Location: Mobile-OP Procedure: 2D, Color Doppler and Spectra l Doppler. Indication for study: Tachycardia Cardiac Rhythm: Regular and with prematu re ventricular contractions.Study quality: Good. Final Impressions: 1. Normal LV size, mildly increased wal l thickness, normal function with an estimated EF of 65 - 70%. 2. Right ventricular cavity size is nor mal, global systolic RV function is normal. 3. The mitral valve is normal, mild tatiana ral regurgitation. 4. Normal estimated PA and central veno us pressures. Comparison There are no prior studies on this patie nt for comparison purposes. Chamber Sizes and Function Normal left ventricular size, mildly inc reased wall thickness, normal global systolic function with an estimated EF of 65 - 70%. Left atrial size is normal. Right ventricular cavity size is normal, glob al systolic RV function is normal. RV wa ll thickness is normal. The right atrium is normal. Right atrial volume index is 13 ml/m? ??. Right atrial area is 13 cm? ??. The pulmonary artery is of normal si ze and origin. The sinus of Valsalva is normal sized. The ascending aorta is normal sized. Valves, RV Pressures and Diastolic Funct ion The aortic valve is normal in structure and trileaflet, no stenosis and no regurgitation. The mitral valve is normal in structure, mild mitral regurgitation. Normal diastolic function. The tricuspid vielka ve is normal in structure. Tricuspid reg urgitation is trace regurgitation. The tricuspid regurgitant velocity is 2.2 m/s, the estimated right ventricular systolic pressure is 19 mmHg plus right atrial p ressure. The pulmonic valve is normal. T race pulmonary regurgitation. Masses, Effusion, Shunts There is no pericardial effusion. The in ferior vena cava is normal sized, respiratory size variation greater than 50%. No left to right shunting was detected by limited color flow Doppler interrogation of the interatrial septum. MEASUREMENTS AND CALCULATIONS 2-D Measurements and LV Function: LVID (d) 5.1 cm LV FS% (2D) ?? 33 % LVID (s) 3.4 cm LVOT diameter 2.3 cm IVS (d) ??1.3 cm HR ?69 bpm LVPW (d) 1.3 cm LA Vol index ??16 ml/m2 Ao Sinus 3.2 cm RA Vol index ??13 ml/m2 Asc Ao ?? 3.7 cm RA area ? 13 cm? ?? LA ? 3.9 cm RV Max 4C (d) 3.0 cm Diastology: Mitral ?Tissue Doppler ?Pulmonary veins E Peak 1.0 m/s ??e', Septum ? 0.07 m /s Pulm s ?62.0 cm/s A Peak 1.0 m/s ??e', Lateral ?0.12 m /s Pulm d ?49.1 cm/s E/A ?1.0 ?E/e' Average ?? 10. 14 ?Pulm s/d ratio ??1.26 DT ? 252 msec IVRT ?? 108 msec Aortic Valve: Vmax ? 1.4 m/s ??FRANCESCA (V) ?? 2.67 cm? ?? VTI ?0.33 m ?? FRANCESCA (I ) ?? 2.56 cm? ?? LVOT V max ? 0.9 m/s ??Max PG ?8 mmHg LVOT VTI ? 0.21 m ?? Mean PG ? ? 4 mmHg SV ? 83 ml ?Dim I ndex 0.63 SV index ? 38 ml/m? ?? CO ?5.8 l/min AV Ejection Time 0.31 sec CI ? 2.6 l/min/m? ?? AV Flow Rate ? 273 ml/s Mitral Valve: MVA ?3.0 cm? ?? MV P 1/2 73 msec Tricuspid Valve and estimated PA pressur es: TR Vmax 2.2 m/s TAPSE 3.0 cm TR maxG 19 mmHg . This study was interpreted by an [facility] facility. CC: [facility]. ??Final ?? Procedure Note Bigg Cabrera MD - 06/12/2022Fo rmatting of this note might be different from the original. ECHOCARDIOGRAM CHAYO ORNELAS : 1980 42 years Study Date: 06/12 1:06:08 PM Gender: F BP: 145/99 mmHg Height: 168.00 cm BSA: 2.18 m? ?? Weight: 111.00 kg Tech: SANJAY Referring MD: EDINSON CHACON [facility] Reading Location: Mobile-OP Procedure: 2D, Color Doppler and Spectra l Doppler. Indication for study: Tachycardia Cardiac Rhythm: Regular and with prematu re ventricular contractions.Study quality: Good. Final Impressions: 1. Normal LV size, mildly increased wal l thickness, normal function with an estimated EF of 65 - 70%. 2. Right ventricular cavity size is nor mal, global systolic RV function is normal. 3. The mitral valve is normal, mild tatiana ral regurgitation. 4. Normal estimated PA and central veno us pressures. Comparison There are no prior studies on this patie nt for comparison purposes. Chamber Sizes and Function Normal left ventricular size, mildly inc reased wall thickness, normal global systolic function with an estimated EF of 65 - 70%. Left atrial size is normal. Right ventricular cavity size is normal, global systolic RV function is normal. RV wall thickness is normal. The right atrium is normal. Right atrial volume index is 13 ml/m? ??. Right atrial area is 13 cm? ??. The pulmonary artery is of normal size and origin. The sinus of Valsalva is normal sized. The ascending aorta is normal sized. Valves, RV Pressures and Diastolic Funct ion The aortic valve is normal in structure and trileaflet, no stenosis and no regurgitation. The mitral valve is normal in structure, mild mitral regurgitation. Normal diastolic function. The tricuspid valve is normal in structure. Tricuspid regurgitation is tr rain regurgitation. The tricuspid regurgitant velocity is 2.2 m/s, the estimated right ventricular systolic pressure is 19 mmHg plus right atrial pressure. The pulmonic valve is normal. Trace pulmonary regurgitation. Masses, Effusion, Shunts There is no pericardial effusion. The in ferior vena cava is normal sized, respiratory size variation greater than 50%. No left to right shunting was detected by limited color flow Doppler interrogation of the interatrial septum. MEASUREMENTS AND CALCULATIONS 2-D Measurements and LV Function: LVID (d) 5.1 cm LV FS% (2D) 33 % LVID (s) 3.4 cm LVOT diameter 2.3 cm IVS (d) 1.3 cm HR 69 bpm LVPW (d) 1.3 cm LA Vol index 16 ml/m2 Ao Sinus 3.2 cm RA Vol index 13 ml/m2 Asc Ao 3.7 cm RA area 13 cm? ?? LA 3.9 cm RV Max 4C (d) 3.0 cm Diastology: Mitral Tissue Doppler Pulmonary veins E Peak 1.0 m/s e', Septum 0.07 m/s Pulm s 62.0 cm/s A Peak 1.0 m/s e', Lateral 0.12 m/s Pulm d 49.1 cm/s E/A 1.0 E/e' Average 10.14 Pulm s/d rati o 1.26 DT 252 msec IVRT 108 msec Aortic Valve: Vmax 1.4 m/s FRANCESCA (V) 2.67 cm? ?? VTI 0.33 m FRANCESCA (I) 2.56 cm? ?? LVOT V max 0.9 m/s Max PG 8 mmHg LVOT VTI 0.21 m Mean PG 4 mmHg SV 83 ml Dim Index 0.63 SV index 38 ml/m? ?? CO 5.8 l/min AV Ejection Time 0.31 sec CI 2.6 l/min/m ? ?? AV Flow Rate 273 ml/s Mitral Valve: MVA 3.0 cm? ?? MV P 1/2 73 msec Tricuspid Valve and estimated PA pressur es: TR Vmax 2.2 m/s TAPSE 3.0 cm TR maxG 19 mmHg . This study was interpreted by an [facility] facility. CC: [facility]. Final Edinson Chacon MD ECHO ORD EXTENDED HOLTER (06/05/2022) Narrative Dunia Stern Mark - 06/05/2022 This result has an attachment that is no t available. Patient enrolled with vendor this date f or Extended Holter home enrollment, duration 14 days. Device will be mailed to lolly t by vendor. ??Report will be found in the Procedures tab approximately 7-10 days a fter end of monitor period. Edinson Chacon MD CARDIAC SERVICES ORD LAB TRACKING EVENT (05/14/2022 8:06 AM CDT) Specimen Anatomical Collection Method Collection Time Receive d Time (Source) Location / / Volume Laterality Other (Other) Client Collect / 05/14/2022 8:06 AM 04/23 4:34 Unknown CDT PM CDT Gayla Hernandez MD LAB BILL ONLY Performing Organization Address City/State/ZIP Code Phon e Number [employer] [address] [place] [address] LABORATORY-CENTRAL 2000 LABORATORY OPTOMETRIC TECH THIN PREP PAP SCREEN IMAGED (05/14/2022 8:06 AM CDT) Component Value Ref Test Analysis Performed At [facility] Range Method Time Signature Case Report Gynecologic Cytology Report ? Case: [id number] ? 06/04/2022 CHRIS Authorizing Provider: ??Gayla San MD ??Collected: ? 05/14/2022 0806 ? 12:08 PM HEALTH Ordering Location: ? [facility] C[facility]TRAL LAB ?Received: ?05/14/2022 1758 ? CDT [place] BORATORY-C First Screen: ? Baccam, Minie ? ENTRAL Specimen: ?OPTOMETRIC TECH ThinPrep Vial Screening, Cervical ? LABORATORY INTERPRETATION NEGATIVE FOR (none) 06/04/2022 [facility] E lectronically /RESULT INTRAEPITHELIAL 12:08 PM HEALTH sign ed by LESION OR CDT LABORATORY-C Baccam, Minie on MALIGNANCY (NIL) ENTRAL 05/22 at LABORATORY 12:08 PM SPECIMEN Satisfactory for evaluation 06/04/2022 [facility] ADEQUACY Endocervical component present 12:08 PM HEALTH CDT LABORATORY-C ENTRAL LABORATORY HPV REQUEST HPV and PAP 06/04/2022 [facility] 12:08 PM HEALTH CDT LABORATORY-C ENTRAL LABORATORY Additional 06/04/2022 [facility] Information 12:08 PM HEALTH CDT LABORATORY-C ENTRAL LABORATORY Comment: Interpreted at [facility], Central Laboratory - [address], [place] [address] Automated Review Successful 06/04/2022 12:08 [facility]-CENTRAL L ABORATORY Comment: Specimen processed successfully by automated forms examiner device, ThinPrep Imaging System, [employer] ANCILLARY TESTING HPV Ordered, 06/04/2022 12:08 [facility] OPTOMETRIC TECH Please see PM CDT LABORATORY-CENTRAL separate report LABORATORY Note The pap test is a 06/04/2022 12:08 [facility] screening PM CDT LABORATORY-CENTRAL technique, not a LABORATORY diagnostic procedure. It is used primarily to screen for squamous cancers and precursor lesions. Published studies have shown that it is subject to both false negative and false positive results. The pap test should not be used as the sole means to diagnose or exclude pre-malignant and malignant lesions. Specimen Anatomical Collection Method Collection Time Receive d Time (Source) Location / / Volume Laterality Other (Cervical) 05/14/2022 8:06 AM 05/14 5:58 CDT PM CDT Gayla Hernandez MD PATHOLOGY/CYTOLOGY Performing Organization Address City/State/ZIP Code Phon e Number [employer] [address] [place] [address] LABORATORY-CENTRAL 2000 LABORATORY HPV HIGH RISK (05/14/2022 8:06 AM CDT) Analysis Performed At Patho logist Time Signature TYPE 16 Negative Negative 05/18/2022 [facility] 11:09 AM CDT LABORATORY-GURJIT TRAL LABORATORY TYPE 18 Negative Negative 05/18/2022 [facility] 11:09 AM CDT LABORATORY-GUR[facility] TRAL LABORATORY OTHER HIGH Negative Negative 05/18/2022 [facility] [employer] RISK TYPES 11:09 AM CDT LABORATORY-GURJIT TRAL LABORATORY Specimen Anatomical Collection Method Collection Time Receive d Time (Source) Location / / Volume Laterality Other (Cervical) 05/14/2022 8:06 AM 05/14 5:58 CDT PM CDT Narrative [facility] LABORATORY-CENTRAL LABORAT ORY - 05/18/2022 11:09 AM CDT HPV types 16, 18, 31, 33, 35, 39, 45, 51, 52, 56, 58, 59, 66 and 68 DNA were undetectable or below the pre-set threshold. Methodology: Thalia Sherine 4800 HPV Test Gayla Hernandez MD MICROBIOLOGY Performing Organization Address City/State/ZIP Code Phon e Number [employer] [address] [place] [address] LABORATORY-CENTRAL 2000 LABORATORY from Last 3 Months Insurance Payer Benefit Plan / Subscriber ID Effective Dates Phone Addre ss Type Group [place] [employer] [id number] 2021-Presen [address] [address] [place] [address] Guarantor Name Account Type Relation to Date of Phone Bill ing Patient Address Gustavo Ornelas Personal/Family Spouse 1977 [address] (Home) AUGUSTINA QUIGLEY [phone] (Work) Advance Directives Latest Code Status on File Code Status Date Activated Date Inactivated Comments Full Code 08/03/2022 4:25 PM 08/04/2022 2:02 AM Code Status Discussion: Other (specify in comments): Care Teams 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
[2022-08-06 10:42] LABS: Ferritin* 22.3 ng/mL (6.24-137.0)
== END 2022-08-06 10:23 | disposition home or self-care (01) ==
PROVIDERS: PCP Family Medicine; Visit Provider Family Medicine
DX: I10 Essential (primary) hypertension (principal); E03.9 Hypothyroidism, unspecified; E66.9 Obesity, unspecified; D50.9 Iron deficiency anemia, unspecified
CPT/HCPCS: 82728; 84439; 84443

== ENCOUNTER 2023-05-17 08:48 | Outpatient (CLI) | payer OTHER, SELFPAY | END 2023-05-17 08:49 | disposition home or self-care (01) | PROVIDERS: PCP Family Medicine; Referring Provider Family Medicine; Visit Provider Family Medicine | DX: E78.5 Hyperlipidemia, unspecified (principal); E03.9 Hypothyroidism, unspecified; Z13.9 Encounter for screening, unspecified; D64.9 Anemia, unspecified; I10 Essential (primary) hypertension | CPT/HCPCS: 80053; 80061; 82728; 84443 ==

== ENCOUNTER 2023-08-31 08:40 | Outpatient (CLI) | payer OTHER, SELFPAY | END 2023-08-31 08:41 | disposition home or self-care (01) | LOC: NFLDREF 09-02 05:22 | PROVIDERS: PCP Family Medicine; Referring Provider Family Medicine; Visit Provider Family Medicine | DX: I10 Essential (primary) hypertension (principal) | CPT/HCPCS: 80048 ==

== ENCOUNTER 2023-11-26 09:04 | Outpatient (CLI) | payer OTHER, SELFPAY ==
--- OUTSIDE RECORDS SUMMARY | 2023-12-01 21:26 | XMS_ITS | Data Portability ---
Author Name Unknown Address [address] [place] [id number] Phone [phone] Organization [place] [facility] Address [address] [place] [address] [place] [address] Assessment Encounter Date Assessment Date Assessment LastModified by Organization Details LastModified Time 10/02/2021 10/02/2021 Today I spent a considerable amount of time discussing the patient's past medical and personal history, as well as performing a physical examination all of which is documented in its entirety in the electronic health record. I reviewed the pathophysiology of the disorder, potential contributing and risk factors as well as treatment options to address their complaints. Today no imaging was obtained. I reviewed the imaging results of Chayo's MRA of the head which were unremarkable. Results are located in patient's EHR. I explained to Chayo that treatment of masticatory and cervical muscles may result in a reduction in tinnitus but that the tinnitus may not be completely eliminated. I would recommend physical therapy with Agusto Nieves DPT, at this time. The goal of treatment is to reduce/eliminate tinnitus of the right ear. I do believe that by following these treatment recommendations there is a guarded prognosis for reduction of symptoms. History today was obtained from the patient. The patient has 2 diagnoses they would like to address. Their symptoms are chronic. This case is low complexity because of limited diagnoses and chronic nature. Data reviewed included: outside records. Today time spent may have included a review of past records, history taking, review of diagnoses, contributing factors, treatment plan, diagnostic testing, prognosis, expectations, risks and complications of treatment/no treatment, discussions with other providers and completing documentation was 45 minutes. I've suggested that the patient return for follow-up care in 6 weeks. [email or web address] Not available 10/02/2021 15:19:10 10/27/2021 10/27/2021 Symptoms are consistent with TMD diagnosis. Patient is moderate complexity with 2 personal factors/comorbidit ies affecting the plan of care, moderate complexity decision making and an evolving clinical presentation. Examination yields 3 affected structures, participation restrictions and/or functional limitations. The patient will benefit from PT to decrease pain and increase function. Contributing factors include muscle guarding, stress and poor posture. Treatment will include exercises to release muscle tension and increase strength and stability. Habit monitoring and repeated reminding techniques will be utilized to eliminate habitual clenching. Improvement in first session; jaw opening increased, cervical ROM increased, the ear pain decreased but still present Short term goals; 3 weeks Client to improve cervical ROM to Within Normal Limits Improve patient awareness of muscle guarding habits to decrease ear pain by 50% snf goals-6 weeks Client to demonstrate independence in maintaining precautions to prevent ear/TMJ pain PLAN: Client is to be seen 1x/week for up to 8 visits for instruction in jaw and neck exercises, postural exercises and body mechanics instructions, self-soft tissue mobilization and avoidance of precipitating parafunctional activities.. At end of initial treatment series, client is to be seen PRN within 90 days from last visit. She lives in [place], so regular visits difficult. Will recheck in several weeks. Client to call if any questions or concerns csather Not available 10/30/2021 14:08:18 12/09/2021 12/09/2021 Today I reviewed the diagnosis, contributing factors and treatment options. I reviewed outcomes of care with physical therapy. I recommended that Chayo contact her PCP immediately to address her high blood pressure. In addition, I suggested an appointment with Dr. Amado, health psychologist, to work on relaxation, stress management techniques, and ways to reduce muscle tension and central sensitization. I demonstrated a masseter stretch and suggested she use heat morning and night before stretching and doing her p/t exercises. History today was obtained from the patient. The patient has 2 diagnoses they would like to address. Their symptoms are unchanged. This case is low complexity because of limited diagnoses and chronic nature. Discussion with treatment team members before visit was necessary. Risk of complications including disease progression were discussed. Today time spent may have included a review of past records, history taking, review of diagnoses, contributing factors, treatment plan, diagnostic testing, prognosis, expectations, risks and complications of treatment/no treatment, discussions with other providers and completing documentation was 25 minutes. I've suggested that the patient return for follow-up care PRN. [email or web address] Not available 12/09/2021 13:10:14 12/09/2021 12/09/2021 Improvement in first session; jaw opening increased, cervical ROM increased, the ear pain decreased but still present; gainsdd not maintained second visit. However, a solid 75% of ear ringing fades with right neck rotation with slight chin tuck; it remains away. She understands no forcible neck motion is to be done. Gentle stretch only Short term goals; 3 weeks Client to improve cervical ROM to Within Normal Limits Improve patient awareness of muscle guarding habits to decrease ear pain by 50% snf goals-6 weeks Client to demonstrate independence in maintaining precautions to prevent ear/TMJ pain PLAN: Client is to be seen 1x/week for up to 8 visits for instruction in jaw and neck exercises, postural exercises and body mechanics instructions, self-soft tissue mobilization and avoidance of precipitating parafunctional activities.. At end of initial treatment series, client is to be seen PRN within 90 days from last visit. She lives in [place], so regular visits difficult. Will recheck in several weeks. Client to call if any questions or concerns csather Not available 12/09/2021 11:24:09 Plan of Treatment Reminders Order Date Submit Date Provider Last Modified By Organization Details Last Modified Time Details Appointments None recorded. Lab None recorded. Referral behavioral health referral 2021 022 [email or web address] [facility], [place] [address], [place], [address], 13:10:33 physical therapist referral 2020 021 [email or web address] Not available 15:23:54 Procedures None recorded. Surgeries None recorded. Imaging None recorded. Medication Orders None recorded. Patient TargetsNo targets recorded. Patient Instructions Encounter Date Encounter Id Patient Instructions Last Modified By Organization Details Last Modified Time 12/09/2021 [id number] Plan: Medicare requires a shotgun shell assembly machine adjuster or STEAMFITTER APPRENTICE to authorize our plan of care. If you agree with the plan as outlined above, please sign, date and fax back to [phone]. Thank you. Primary MD signature: Date: [email or web address] Not available 12/09/2021 10:05:20 10/27/2021 [id number] Plan: Medicare requires a shotgun shell assembly machine adjuster or STEAMFITTER APPRENTICE to authorize our plan of care. If you agree with the plan as outlined above, please sign, date and fax back to [phone]. Thank you. Primary MD signature: Date: [email or web address] Not available 10/27/2021 10:32:21 Reason for Referral Physical Therapist Referral for Myofascial pain Referring Physician: [facility], Encounter Date: 10/02/2021 Behavioral Health Referral f or Myofascial pain Referring Physician: [facility], Encounter Date: 12/09/2021 Results Created Date Observation Date Name Description Value Unit Range Abnormal Flag LastModifiedBy Organization Detail LastModifiedTime Result Notes None recorded. Problems Name Status Onset Date Resolution Date Notes Provider Name and Address Organization Details Recorded Time Tinnitus of right ear Active 021 pulsatile AUGUSTINA Banks [facility] 10/02/2021 12:51:05 Myofascial pain Active 021 masticatory AUGUSTINA Banks [facility] 10/02/2021 12:51:11 Problem Notes None recorded. Procedures Surgical History Date Name Laterality Status Provider Name and Address Organization Details Recorded Time 2 31977: Therapeutic Exercise completed AUGUSTINA Koehler [facility] 12/09/2021 11:20:41 62460: Manual Therapy completed AUGUSTINA Koehler [facility] 12/09/2021 11:21:05 1 88399 - PT Eval Moderate Complexity completed Agusto Lizbeth [facility] 10/27/2021 10:32:22 1 97862: Therapeutic Exercise completed Agusto Nieves [facility] 10/30/2021 14:05:25 1 78102: Manual Therapy completed Agustobroderick Nieves [facility] 10/30/2021 14:05:17 0 Dilation and Curettage completed Emilyclint Agosto [facility] 10/02/2021 11:40:27 Imaging Results None recorded. Procedure Notes None recorded. Medical Equipment None Reported. Allergies No known drug allergies Medications Name Sig Start Date Stop Date Status Note LastModified by Organization Details LastModified Time levothyroxine 88 mcg tablet TAKE ONE TABLET BY MOUTH ONE TIME DAILY active Not Available Not Available No t Available labetalol 100 mg tablet TAKE ONE TABLET BY MOUTH TWICE DAILY active Not Available Not Available No t Available iron 110 mg-C 175 mg-folate 1 mg-B12 12 [id number] ic ox capsule Take by oral route. active Not Available Not Available No t Available Vitals Date Recorded Heart rate Body temperature Systolic blood pressure Diastolic blood pressure Provider Name and Address Organization Details Last Updated DateTime 10/02/2021 68 /min 97.2 [degF] 167 mm[Hg] 99 mm[Hg] Emily billingsley [facility] 10/02/2021 11:33:16 Date Recorded Body temperature Heart rate Systolic blood pressure Diastolic blood pressure Provider Name and Address Organization Details Last Updated DateTime 12/09/2021 97.1 [degF] 74 /min 147 mm[Hg] 101 mm[Hg] Emily billingsley [facility] 12/09/2021 11:05:43 Social History Question Answer Notes LastModified by Organizat ion Details LastModified Time Are You Currently Employed? Yes Information not available 10/02/2021 Who Is Your Employer? [employer] Information not available 10/02/2021 What Is Your Relationship Status? Information not available 10/02/2021 Do You Feel Stressed (tense, Restless, Nervous, Or Anxious, Or Unable To Sleep At Night)? [id number] Information not available 10/02/2021 Sex: Female Functional Status None recorded. Mental Status None recorded. Family History Nothing Reported. Medical History Condition Response Hypertension Y Hypothyroidism Y Gynecological HistoryNo gynecological history recorded. Obstetrics History GPAL:G 0 P 0 0 0 0 Past Encounters Encounter ID Performer Location Encounter Start Date Encounter Closed Date Diagnosis/Indication [id number] Evy Jose Martin [place] [address] [place] [address] 10/02/2021 11:08:30 10/02/2021 12:33:41 Tinnitus of right ear Myofascial pain [id number] Agusto Lizbeth [place] [address] [facility] [place] [address] 10/27/2021 10:31:11 10/27/2021 11:27:24 Myofascial pain [id number] Evy Jose Martin [place] [address] [facility],[address] [place] [address] 12/09/2021 10:00:52 12/09/2021 11:32:32 Myofascial pain [facility]innitus of right ear [id number] [facility] [address] [facility],[address] [place] [address] 12/09/2021 10:01:04 12/09/2021 11:22:25 Myofascial pain Health Concerns Section Related Observation LastModified by Organization Detai ls LastModified Time None Recorded Concern Status LastModified by Organization Details LastModified Time None Recorded Advance Directives Directive None Recorded Payers Encounter Date Sequence Insurance Name Policy Number Policy Bone Covered Member ID Bone Member ID Guarantor Name 12/09/2021 1 [facility] [id number] Gustavo Hammond [id number] Chayo Hammond 12/09/2021 1 [facility] [id number] Gustavo Hammond [id number] Chayo Hammond 10/27/2021 1 [place] Gustavo Hammond [id number] Chayo Hammond 10/02/2021 1 [place] [facility] Gustavo Hammond [id number] Chayo Hammond Notes Date Note Type Note Provider Name and Address Organization Details Recorded Time 1 text/html HPI Notes: general HPI for jaw, face, TMD pain Reported by patient. Onset: started 2 year(s) ago Location: right; ear Duration constant Associated Symptoms: tooth pain; molar onupper right that can be sensitive dentist has shaved it down some. Prior Tests: panorex Prior Treatment: seeing chiropractor for the last 2 years Patient presents today for evaluation of a possible temporomandibular disorder. These symptoms are chronic and began with no clear triggering events. Previous consultation include evaluation with his/her primary care provider. Symptoms are right sided only and aggravated by jaw use and function. The patient is not aware of teeth clenching and grinding. Chayo states that she gave to her daughter two years ago. She states that her jaw was tight during the . At that time, she began experiencing a whooshing heartbeat sound in her right ear. The sound resolved but returned one year ago. She consulted with Dr. Steiner, ENT physican, and was diagnosed with pulsatile tinnitus. A head MRA was taken on 08/11/21- unremarkable. Chayo states that if she puts pressure on her right SCM, the tinnitus will resolve. It returns when she removes the pressure. When she sleeps on her right side, she places a pillow on her neck which reduces the tinnitus so that she can sleep. Chayo is currently being treated for HBP and hypothyroidism. 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 AUGUSTINA Banks - [facility] 10/02/2021 15:23:57 1 text/html HPI Notes: general HPI for jaw, face, TMD pain Reported by patient. Onset: started 2 year(s) ago Location: right; ear Duration constant Associated Symptoms: tooth pain; molar onupper right that can be sensitive dentist has shaved it down some. Prior Tests: panorex Prior Treatment: seeing chiropractor for the last 2 years Patient presents today for PT evaluation regarding jaw pain/ear symptoms. Symptoms began with no clear triggering events. Functional limitations and participation restrictions include eating, yawning, talking, laughing, oral hygiene. Personal factors and/or comorbidities affecting the plan of care include: *Clenching *Bruxism *Leaning on chin *Biting objects *Biting fingernails *Biting lips/cheeks *Tongue thrusting *Jaw thrusting *Unilateral chewing *____ stress level *____ anxiety level *Nicotine *Caffeine ____ per day *Sleep position ____ Patient presents today for evaluation of a possible temporomandibular disorder. These symptoms are chronic and began with no clear triggering events. Previous consultation include evaluation with his/her primary care provider. Symptoms are right sided only and aggravated by jaw use and function. The patient is not aware of teeth clenching and grinding. Chayo states that she gave to her daughter two years ago. She states that her jaw was tight during the . At that time, she began experiencing a whooshing heartbeat sound in her right ear. The sound resolved but returned one year ago. She consulted with Dr. Steiner, ENT physican, and was diagnosed with pulsatile tinnitus. A head MRA was taken on 08/11/21- unremarkable. Chayo states that if she puts pressure on her right SCM, the tinnitus will resolve. It returns when she removes the pressure. When she sleeps on her right side, she places a pillow on her neck which reduces the tinnitus so that she can sleep. Chayo is currently being treated for HBP and hypothyroidism. 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 Ear ringing returns immediately after release. She can also get ear ringing gone by counterstrain method; rotate neck to the right, do cervical retraction, rotation to 77 degrees; after pressure remove symptoms stays over 75% better Half foam roll trial with cervical retraction largely abolishes symptoms of right ear ringing, stays away for 10 minute. AUGUSTINA Koehler - [facility] 10/30/2021 14:08:36 2 text/html HPI Notes: general HPI for jaw, face, TMD pain Reported by patient. Onset: started 2 year(s) ago Location: right; ear Duration constant Associated Symptoms: tooth pain; molar onupper right that can be sensitive dentist has shaved it down some. Prior Tests: panorex Prior Treatment: seeing chiropractor for the last 2 years Patient presents today for PT evaluation regarding jaw pain/ear symptoms. Symptoms began with no clear triggering events. Functional limitations and participation restrictions include eating, yawning, talking, laughing, oral hygiene. Personal factors and/or comorbidities affecting the plan of care include: *Clenching *Bruxism *Leaning on chin *Biting objects *Biting fingernails *Biting lips/cheeks *Tongue thrusting *Jaw thrusting *Unilateral chewing *____ stress level *____ anxiety level *Nicotine *Caffeine ____ per day *Sleep position ____ Patient presents today for evaluation of a possible temporomandibular disorder. These symptoms are chronic and began with no clear triggering events. Previous consultation include evaluation with his/her primary care provider. Symptoms are right sided only and aggravated by jaw use and function. The patient is not aware of teeth clenching and grinding. Chayo states that she gave to her daughter two years ago. She states that her jaw was tight during the . At that time, she began experiencing a whooshing heartbeat sound in her right ear. The sound resolved but returned one year ago. She consulted with Dr. Steiner, ENT physican, and was diagnosed with pulsatile tinnitus. A head MRA was taken on 08/11/21- unremarkable. Chayo states that if she puts pressure on her right SCM, the tinnitus will resolve. It returns when she removes the pressure. When she sleeps on her right side, she places a pillow on her neck which reduces the tinnitus so that she can sleep. Chayo is currently being treated for HBP and hypothyroidism. 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 Ear ringing returns immediately after release. She can also get ear ringing gone by counterstrain method; rotate neck to the right, do cervical retraction, rotation to 77 degrees; after pressure remove symptoms stays over 75% better Half foam roll trial with cervical retraction largely abolishes symptoms of right ear ringing, stays away for 10 minute. 12-09-21 she reports some worsening, but vague cervical rotation right 78, left 74 degrees she has used foam roll which helps but only while she is on it. Suggested at some point to try flat side for comfort repeated supine on foam roll. she tried scapular squeezes with theraband; these made her worse in the right ear she had reported some pulsatile increase of ear ring theory is that her activity may have tightened up the sternocleidomastoid or stretched it too fast raising arms up to 120 degrees while oin foam roll decreased the ear symptoms, about half. when left arm lowered the right ear ringing increased putting left arm into 120 degree position decreased it again sitting upright caused the ear ringing to re-occur in just a minute pressure to anterior third of scm reduced the ear ringing again; max turning to the right with chin tuck to maximally stretch the right scm decreased the ear ringing by 75% Mandibular anterior movement, to see if Eng splint might be of use, decreased the ear ringing very minimally, but as rotation removed, uncertain of change reviewed body mechanics with emphasis on avoiding the neck extension with movement to help long-term decrease the tingling by keeping scm loose she will keep neck rotated right as much as possible Agusto billingsley [place] - [facility] 12/09/2021 11:24:25 2 text/html HPI Notes: general HPI for jaw, face, TMD pain Reported by patient. Onset: started 2 year(s) ago Location: right; ear Duration constant Associated Symptoms: tooth pain; molar onupper right that can be sensitive dentist has shaved it down some. Prior Tests: panorex Prior Treatment: seeing chiropractor for the last 2 years Patient presents today for follow-up. They report jaw symptoms which are unchanged since the previous visit. Symptoms and pertinent information along with prior data was reviewed, updated and documented in the patient history of present illness. Patient rates the pain intensity as 0 on a scale of 0 to 10. Patient is engaged in active treatment at this time. Chayo states that she has had 2 sessions of p/t with Agusto Nieves. When she does her exercises, the pulsatile tinnitus reduces, but it returns shortly after stopping the exercises. Chayo acknowledged her high blood pressure today and stated that she is inconsistent with taking her blood pressure meds. She also stated that her stress level is 5 or 6/10. Chayo is with seven kids. 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 AUGUSTINA Banks - [facility] 12/09/2021 13:10:38 OBGyn Episode No OBEpisode recorded.
--- OUTSIDE RECORDS SUMMARY | 2023-12-01 21:26 | XMS_ITS | Clinical Summary ---
Author Name Unknown Organization [facility] Address [place], [place] [address] Care Team Providers Care Paint Spray Tender Name Role Phone Gayla Hernandez MD Primary Care Provider + Allergies No known active allergies Medications Medication Sig Dispensed Refills Start Date End Date Status ferrous sulfate 325 mg delayed release tablet Take 1 tablet by mouth once daily with a meal. 0 10/02/2019 Active levothyroxine (SYNTHROID) 100 mcg tablet Take 100 mcg by mouth once daily. 0 05/29/2022 Active Tranexamic Acid 650 mg tab TAKE 2 TABLETS BY MOUTH THREE TIMES DAILY FOR 5 DAYS DURING MENSES. 0 07/08/2022 Active labetaloL (TRANDATE) 200 mg tablet Take 200 mg by mouth two times daily. 0 05/14/2022 Active amLODIPine (NORVASC) 5 mg tabletIndications:HT N (hypertension) Take 1 Tablet (5 mg) by mouth once daily. Further refills require follow-up visit with provider 01/28/23 90 Tablet 0 12/07/2022 Active Active Problems Problem Noted Date Diagnosed Date Recurrent loss in patient in second trimester, antepartum 07/10/2019 Overview: Recurrent loss (RPL 6 SAB's): negative thrombophilia lab workup (December 2018) Morbid obesity with BMI of 40.0-44.9, adult 06/22 Overview: Normal appearing Level II sonogram / echocardiogram (MPP: 07.10.2019 = 20w0d) Elderly multigravida in second trimester 019 Overview: Declined serum aneuploidy screening History of gestational hypertension 07/10/2019 High risk due to r ecurrent loss, second trimester 05/17/2019 Overview: Component Latest Ref Rng & Units 10/31/2019 Vaginal/Rectal OB Strep B PCR Negative Estimated Date of Delivery: 11/27/19 Patient's last menstrual period was 02/20/2019 (exact date). Last Tdap- Declined Last Flu vaccine- Declined Glucose (GTT) result- Component Latest Ref Rng & Units 08/15/2019 HEMOGLOBIN 12.0 - 16.0 g/dL 11.0 (L) MCV 80 - 100 fL 81 TSH 0.35 - 4.94 uIU/mL 2.34 GLUCOSE,GESTATIONAL 65 - 139 mg/dL 115 20 week US:IMPRESSION: Intrauterine at 20w 0d. presentation is Variable. EFW 334 grams, percentile: 52. Growth parameters and estimated weight are appropriate for gestational age. No major structural anomalies identified. No markers for aneuploidy identified. The echocardiogram was read by MPP as normal. The amniotic fluid volume appears normal. Placental location: Fundal, right lateral There is no evidence of placenta previa. The cervical length is 3.9 cm. No Known Allergies OB History Para Term AB Living 16 6 6 0 9 6 SAB TAB Ectopic Multiple Live Births 9 0 0 0 6 # Outcome Date GA Lbr Herb/2nd Weight Sex Delivery Anes PTL Lv 16 Current 15 Term 07/10/16 38w2d Vag JANEE 14 10/2014 4w0d 13 10/2013 5w0d 12 04/2012 14w0d 11 05/2011 13w0d 10 03/2011 6w0d 9 09/2010 19w0d 8 Term 09/20/09 4.05 kg (8 lb 15 oz) F Vag N JANEE 7 10/2008 17w0d 6 05/2008 10w0d 5 08/2007 8w0d 4 Term 09/10/06 4.05 kg (8 lb 15 oz) F Vag N JANEE 3 Term 04/25/04 40w0d 4.08 kg (9 lb) M Vag N JANEE 2 Term 02/28/02 40w0d 3.52 kg (7 lb 12 oz) M Vag N JANEE 1 Term 12/28/00 40w0d 4.17 kg (9 lb 3 oz) M Vag N JANEE Create lab flowsheet for OB labs- Component Latest Ref Rng & Units 05/01/2019 05/01/2019 05/01/2019 4:31 PM 4:31 PM 4:31 PM [...] data on file. Problems (from 05/01/19 to present) No problems associated with this episode. Nini Fitch, OZZYC.....05/17/2019 7:52 AM Hypothyroidism (acquired) 03/02/2017 Overview: +TPO AB; quit taking medicine. Restarting meds 10/06/2017, advised to have TSH checked in 6-8 weeks Preexisting hypertension com plicating , antepartum, second trimester 07/14/2016 Overview: Not currently on low dose ASA prophylaxis Not currently on antihypertensive regimen Resolved Problems Problem Noted Date Diagnosed Date Resolved Date MPP consult 01/09/2016 017 Overview: REASON FOR CONSULT: AMA, recurrent losses GESTATIONAL AGE: ZACH: 07/22/16 /PARITY: TODAY'S APPOINTMENT: U/S and consult PRIMARY DIAGNOSIS: History of 9 SABs, 5 term deliveries LAST GROWTH: Viability U/S 01/06/16, 12w 1d Beta HcG noted to be decreasing Viability U/S 12/17/15, 8w 6d TESTING PLANS: REFERRING PH[facility]ICIAN & [phone] SPECIALISTS & PHONE: HENNA: CARE COORDINATION: MEDS: Progesterone BLOOD TYPE/LABS: O positive GENETICS: declined PLAN OF CARE: state, incidental 12/26/2015 1 11/27/2016 Overview: Dr Dan for baby MD Declines flu shot 12/26/2015 Supervision of other high ri sk pregnancies, first trimester 12/13/2015 09/27/2017 Overview: Group B Strep NEGATIVE 06/22/2016 Wishes delayed cord clamping Declines Hepatitis vaccine, Vitamin K, eye ointment. RECURRENT LOSS W/O CURRENT 06/10/2011 09/27/2017 Multiparity 06/10/2011 09/27/2017 ANEMIA, SECONDARY TO ACUTE BLOOD LOSS 06/10/2011 09/27/2017 Immunizations Name Administration Dates Next Due Influenza A (H1N1), Inactivated (Age >=3 Years) 09/18/2009 Influenza, IIV3 (Age >=3 years) 09/22/2007,08/25 Family History Medical History Relation Name Comments [...] Tobacco Use Types Packs/Day Years Used Date Smoking Tobacco: Never Smokeless Tobacco: Never Tobacco Cessation:Counseling Given: Yes Alcohol Use Standard Drinks/Week Comments No 0 (1 standard drink = 0.6 oz pur e alcohol) PHQ-2 Answer Date Recorded PHQ-2 Score 0 05/01/2019 Social Connections Answer Date Recorded Frequency of Communication with Friends and Fami ly Not on file 06/05/2022 Sex and Gender Information Value Date Recorded Sex Assigned at Not on file Gender Identity Not on file Sexual Orientation Not on file Obstetrics History Para Term AB IAB SAB Ectopic Multiple Livin g Live Births 16 6 6 0 9 0 9 0 0 6 6 Date Outcome GA Total Labor Labor/2nd/3rd Weight Sex Delivery Anes PTL Janee A1 A5 Name Cl in 11/18 Term 40w 0d 4.17 kg (9 lb 3 oz) M Vag N Judy ng 02/28 Term 40w 0d 3.52 kg (7 lb 12 oz) M Vag N Judy ng 04/25 Term 40w 0d 4.08 kg (9 lb) M Vag N Judy ng 09/10 Term 4.05 kg (8 lb 15 oz) F Vag N Judy ng 09/10 07 SAB 8w0 d 06/10 08 SAB 10w 0d 11/10 08 SAB 17w 0d 09/20 Term 4.05 kg (8 lb 15 oz) F Vag N Judy ng 10/11 10 SAB 19w 0d 04/10 11 SAB 6w0 d 06/10 11 SAB 13w 0d 05/11 12 SAB 14w 0d 11/10 13 SAB 5w0 d 11/10 14 SAB 4w0 d 07/10 Term 38w 2d Vag Judy ng Last Filed Vital Signs Vital Sign Reading Time Taken Comments Blood Pressure 153/93 08/03/2022 10:00 PM CDT Pulse 84 08/03/2022 8:00 PM CDT Temperature 36.5 ??C (97.7 ??F) 08/03/2022 8:00 PM CD T Respiratory Rate 18 08/03/2022 8:00 PM CDT [...] Depression screening for age 12+ 05/16/2020 05/16/2019, 05/01/2019, 03/01/2017, Additional history exists BMI (ht and wt on same day) for age 18+ 07/21/2023 07/21/2022, 11/16/2019, 05/16/2019, Additional history exists Influenza for age 9-49 07/23/2023 9, 09/22/2007, 08/25/2004 Pap test for age 21-65 05/14/2025 2, 05/14/2022, 05/01/2011 HIV for age 15-65 Completed 05/01/2019, 12/13/2015 Hepatitis C screening for age 18-79 Completed 05/01/2019 Pneumococcal series for age 6-64 Aged Out No longer eligible based on patient's age to complete this topic Goals Goal Patient Goal Type Associated Problems Recent Progress Patient-Stated? Author BLOOD PRESSURE - Maintains BP less than 130/80 Blood Pressure No Whitley Alcocer MD Advance Directives Latest Code Status on File Code Status Date Activated Date Inactivated Comments Full Code 08/03/2022 4:25 PM 08/04/2022 2:02 AM Question Answer Comments Code Status Discussion: Other (specify in commen ts): Care Teams Paint Spray Tender Relationship Specialty Start Date End Date Gayla Hernandez MD [address] [place] [address] PCP - General Family Practice 07/21/22
--- OUTSIDE RECORDS SUMMARY | 2023-12-01 21:26 | XMS_ITS | Referral Summary ---
Author Name Unknown Organization [facility] Address [address] [place] [address]. [place] [address] Care Team Providers Care Hospital Secretary Name Role Phone Gayla Hernandez MD Primary Care Provider + Allergies No known active allergies Medications Medication Sig Dispensed Refills Start Date End Date Status levothyroxine (SYNTHROID/LEVOTHROID ) 100 MCG tablet Take 100 mcg by mouth every morning (before breakfast) 0 Active amLODIPine (NORVASC) 5 MG tablet Take 5 mg by mouth every evening 0 Active vitamin C (ASCORBIC ACID) 1000 MG TABS Take 1,000 mg by mouth daily 0 Active zinc gluconate 50 MG tablet Take 50 mg by mouth daily 0 Active labetalol (NORMODYNE) 200 MG tablet Take 200 mg by mouth 2 times daily 0 09/01/2022 Active oxyCODONE (ROXICODONE) 5 MG tabletIndications:Pos toperative pain One or two tablets PO q4h prn pain 12 tablet 0 11/03/2022 Active Active Problems No known active problems Immunizations Name Administration Dates Next Due Influenza (H1N1) 09/18/2009 Influenza (IIV3) PF 09/22/2007,08/25/2004 Social History Tobacco Use Types Packs/Day Years Used Date Smoking Tobacco: Never Tobacco Cessation:Counseling Given: Not Answered Adolescent Education Answer Date Record ed Getting School Help Needed Not on file 08/13 Sex and Gender Information Value Date Recorded Sex Assigned at Not on file Gender Identity Not on file Sexual Orientation Not on file Last Filed Vital Signs Vital Sign Reading Time Taken Comments Blood Pressure 140/91 11/03/2022 8:20 AM MARKETING STRATEGY MANAGER Pulse 74 11/03/2022 8:20 AM MARKETING STRATEGY MANAGER Temperature 36.7 ??C (98.1 ??F) 11/03/2022 8:20 AM CS T Respiratory Rate 16 11/03/2022 8:20 AM MARKETING STRATEGY MANAGER Oxygen Saturation 97% 11/03/2022 8:20 AM MARKETING STRATEGY MANAGER Inhaled Oxygen Concentration - - Weight 110.9 kg (244 lb 8 oz) 11/02/2022 5:43 AM MARKETING STRATEGY MANAGER Height 167.6 cm (5' 6) 11/02/2022 5:43 AM MARKETING STRATEGY MANAGER Body Mass Index 39.46 11/02/2022 5:43 AM MARKETING STRATEGY MANAGER Plan of Treatment Not on file Advance Directives For more information, please contact: [phone] Latest Code Status on File Code Status Date Activated Date Inactivated Comments Full Code 11/02/2022 11:54 AM 11/03/2022 11:11 AM A ll basic and advanced life-sustaining interventions are performed as appropriate Question Answer Comments Code status determined by: Other (please document) Care Teams Hospital Secretary Relationship Specialty Start Date End Date Gayla Hernandez MD [facility] [address] [place] [address] PCP - General Family Medicine 10/26/22
--- OUTSIDE RECORDS SUMMARY | 2023-12-01 21:26 | XMS_ITS | Clinical Summary ---
Author Name Unknown Organization [facility] Address [address] [place] [address]. [place] [address] Care Team Providers Care Wedding Day Coordinator Name Role Phone Gayla Hernandez MD Primary [...] Blood Pressure 140/91 11/03/2022 8:20 AM MARKETING COMMUNITY LIAISON Pulse 74 11/03/2022 8:20 AM MARKETING COMMUNITY LIAISON Temperature 36.7 ??C (98.1 ??F) 11/03/2022 8:20 AM CS T Respiratory Rate 16 11/03/2022 8:20 AM MARKETING COMMUNITY LIAISON Oxygen Saturation 97% 11/03/2022 8:20 AM MARKETING COMMUNITY LIAISON Inhaled Oxygen Concentration - - Weight 110.9 kg (244 lb 8 oz) 11/02/2022 5:43 AM MARKETING COMMUNITY LIAISON Height 167.6 cm (5' 6) 11/02/2022 5:43 AM MARKETING COMMUNITY LIAISON Body Mass Index 39.46 11/02/2022 5:43 AM MARKETING COMMUNITY LIAISON Plan of Treatment Health Maintenance Due Date Last Done Comments ADVANCE CARE PLANNING 1979 ANNUAL REVIEW OF HM ORDERS 1979 HEPATITIS B IMMUNIZATION (1 of 3 - 3-dose series) 1979 TSH W/FREE T4 REFLEX 1979 YEARLY PREVENTIVE VISIT 1979 COVID-19 Vaccine (#1) 1979 HIV SCREENING 1994 HEPATITIS C SCREENING 1997 PAP 2000 DTAP/TDAP/TD IMMUNIZATION (1 - Tdap) 2004 PHQ-2 (once per calendar year) 2022 INFLUENZA VACCINE (#1) 2023 9, 09/18/2009, 09/18/2009, Additional history exists HPV IMMUNIZATION Aged Out No longer e ligible based on patient's age to complete this topic IPV IMMUNIZATION Aged Out No longer e ligible based on patient's age to complete this topic MENINGITIS IMMUNIZATION Aged Out No l onger eligible based on patient's age to complete this topic Pneumococcal Vaccine: Pediatrics (0 to 5 Years) and At-Risk Patients (6 to 64 Years) Aged Out No longer eligible based on patient's age to complete this topic RSV MONOCLONAL ANTIBODY Aged Out No l onger eligible based on patient's age to complete this topic Advance Directives For more information, please contact: [phone] Latest Code Status on File Code Status Date Activated Date Inactivated Comments Full Code 11/02/2022 11:54 AM 11/03/2022 11:11 AM A ll basic and advanced life-sustaining interventions are performed as appropriate Question Answer Comments Code status determined by: Other (please document) Care Teams Wedding Day Coordinator Relationship Specialty Start Date End Date Gayla Hernandez MD [facility] [address] [place] [address] PCP - General Family Medicine 10/26/22
== END 2023-11-26 09:05 | disposition home or self-care (01) ==
LOC: NFLDREF 12-01 21:24
PROVIDERS: PCP Family Medicine; Referring Provider Family Medicine; Visit Provider Family Medicine
DX: I10 Essential (primary) hypertension (principal)
CPT/HCPCS: 80048

== ENCOUNTER 2024-06-09 08:40 | Outpatient (CLI) | payer OTHER, SELFPAY ==
--- OUTSIDE RECORDS SUMMARY | 2024-06-12 14:45 | XMS_ITS | Data Portability ---
Author Organization [place] [facility] Address [address] [place] [address] [address] [place] [address] Assessment Encounter Date Assessment Date Assessment LastModified [...] return for follow-up care in 6 weeks. [email or web address] Not available 10/02/2021 15:19:10 10/27/2021 10/27/2021 Symptoms [...] habits to decrease ear pain by 50% senior care goals-6 weeks Client to demonstrate independence in [...] days from last visit. She lives in [place], so regular visits difficult. Will recheck in [...] the patient return for follow-up care PRN. [email or web address] Not available 12/09/2021 13:10:14 12/09/2021 12/09/2021 Improvement [...] habits to decrease ear pain by 50% senior care goals-6 weeks Client to demonstrate independence in [...] days from last visit. She lives in [place], so regular visits difficult. Will recheck in several weeks. Client to call if any questions or concerns [email or web address] Not available 12/09/2021 11:24:09 Plan of Treatment Reminders Order Date Submit Date Provider Last Modified By Organization Details Last Modified Time Details Appointments None recorded. Lab None recorded. Referral physical therapist referral 2020 021 [email or web address] Not available 15:23:54 behavioral health referral 2021 022 [email or web address] [address] [place] [facility] [address], [place], [address], 13:10:33 Procedures None recorded. Surgeries None recorded. Imaging None recorded. Medication Orders None recorded. Patient TargetsNo targets recorded. Patient Instructions Encounter Date Encounter Id Patient Instructions Last Modified By Organization Details Last Modified Time 10/27/2021 [id number] Plan: Medicare requires a yarn texturing machine operator or PET CAREGIVER to authorize our plan of care. If you agree with the plan as outlined above, please sign, date and fax back to [phone]. Thank you. Primary MD signature: Date: [email or web address] Not available 10/27/2021 10:32:21 12/09/2021 [id number] Plan: Medicare requires a yarn texturing machine operator or PET CAREGIVER to authorize our plan of care. If you agree with the plan as outlined above, please sign, date and fax back to [phone]. Thank you. Primary MD signature: Date: [email or web address] Not available 12/09/2021 10:05:20 Reason for Referral Physical Therapist Referral for [...] right ear Active 021 pulsatile AUGUSTINA Banks [facility] 10/02/2021 12:51:05 Myofascial pain Active 021 masticatory AUGUSTINA Banks [facility] 10/02/2021 12:51:11 Problem Notes None recorded. Procedures Surgical History Date Name Laterality Status Provider Name and Address Organization Details Recorded Time 2 22054: Therapeutic Exercise completed AUGUSTINA Koehler [facility] 12/09/2021 11:20:41 2 41879: Manual Therapy completed AUGUSTINA Koehler [facility] 12/09/2021 11:21:05 1 40160 - PT Eval Moderate Complexity completed Agusto Nieves [facility] 10/27/2021 10:32:22 1 20852: Therapeutic Exercise completed Agusto billingsley [facility] 10/30/2021 14:05:25 1 32745: Manual Therapy completed Agustobroderick Nieves [facility] 10/30/2021 14:05:17 0 Dilation and [facility]ttage [facility] 10/02/2021 11:40:27 Imaging Results None recorded. Procedure [...] 110 mg-C 175 mg-folate 1 mg-B12 12 [id number] ic ox capsule Take by oral route. active Not Available Not Available No t Available Vitals Date Recorded Heart rate Body temperature Systolic blood pressure Diastolic blood pressure Provider Name and Address Organization Details Last Updated DateTime 10/02/2021 68 /min 97.2 [degF] 167 mm[Hg] 99 mm[Hg] Emily Sanchez [facility] 10/02/2021 11:33:16 Date Recorded Body temperature Heart rate Systolic blood pressure Diastolic blood pressure Provider Name and Address Organization Details Last Updated DateTime 12/09/2021 97.1 [degF] 74 /min 147 mm[Hg] 101 mm[Hg] Emily Agosto [facility] 12/09/2021 11:05:43 Social History Question Answer Notes LastModified by Organizat ion Details LastModified Time Are You Currently Employed? Yes Information not available 10/02/2021 Who Is Your Employer? [employer] Information not available 10/02/2021 What Is Your Relationship Status? Information not available 10/02/2021 Do You Feel Stressed (tense, Restless, Nervous, Or Anxious, Or Unable To Sleep At Night)? [id number] Information not available 10/02/2021 Sex: Unknown Functional Status None recorded. Mental Status None recorded. Family History Nothing Reported. Medical History Condition Response Hypertension Y Hypothyroidism Y Gynecological HistoryNo gynecological history recorded. Obstetrics History GPAL:G 0 P 0 0 0 0 Past Encounters Encounter ID Performer Location Encounter Start Date Encounter Closed Date Diagnosis/Indication Diagnosis SNOMED-CT Code [id number] Evy Friasviheron e [address] [place] [address] 10/02/2021 11:08:30 10/02/2021 12:33:41 Tinnitus of right ear [id number] Myofascial pain 71995107 9 [id number] Agusto Friasvill e [address] [place] [address] 10/27/2021 10:31:11 10/27/2021 11:27:24 Myofascial pain [id number] Evy Friasvill e [address] [place] [address] 12/09/2021 10:00:52 12/09/2021 11:32:32 Myofascial pain 314219989 Tinnitus of right ear 48 [id number] Agusto Friasvill e [address] [place] [address] 12/09/2021 10:01:04 12/09/2021 11:22:25 Myofascial pain [id number] Health Concerns Section Related Observation LastModified by Organization Detai ls LastModified Time None Recorded Concern Status LastModified by Organization Details LastModified Time None Recorded Advance Directives Directive None Recorded Payers Encounter Date Sequence Insurance Name Policy Number Policy Bone Covered Member ID Bone Member ID Guarantor Name 10/02/2021 1 LOLA-AUGUSTINA Hammond [id number] Chayo Hammond 10/27/2021 1 LESTER Hammond [id number] Chayo Hammond 12/09/2021 1 [facility] [id number] Gustavo Hammond [id number] Chayo Hammond 12/09/2021 1 [facility] [id number] Gustavo Hammond [id number] Chayo Hammond Notes Date Note Type Note [...] is with seven kids. 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 AUGUSTINA Banks - [facility] 10/02/2021 15:23:57 [...] is with seven kids. 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 AUGUSTINA Koehler - [facility] 10/30/2021 14:08:36 [...] is with seven kids. 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 AUGUSTINA Banks - [facility] 12/09/2021 13:10:38 OBGyn Episode No OBEpisode recorded.
--- OUTSIDE RECORDS SUMMARY | 2024-06-12 14:45 | XMS_ITS | Clinical Summary ---
Author Organization [facility] Address [address] [place] [address]. [place] [address] Care Team Providers Care Gift Shop Assistant Name Role Phone Gayla Hernandez MD Primary Care Provider + Allergies No known active allergies Medications Medication Sig Dispensed Refills Start Date End Date Status levothyroxine (SYNTHROID/LEVOTHROID ) 100 MCG tablet Take 100 mcg by mouth every morning (before breakfast) Active amLODIPine (NORVASC) 5 MG tablet Take 5 mg by mouth every evening Active vitamin C (ASCORBIC ACID) 1000 MG TABS Take 1,000 mg by mouth daily Active zinc gluconate 50 MG tablet Take 50 mg by mouth daily Active labetalol (NORMODYNE) 200 MG tablet Take 200 mg by mouth 2 times daily 09/01/2022 Active oxyCODONE (ROXICODONE) 5 MG tabletIndications:Pos toperative pain One or two tablets PO q4h prn pain 12 tablet 11/03/2022 Active Active Problems No known active [...] Comments Blood Pressure 140/91 11/03/2022 8:20 AM CLEARANCE CUTTER Pulse 74 11/03/2022 8:20 AM CLEARANCE CUTTER Temperature 36.7 ??C (98.1 ??F) 11/03/2022 8:20 AM CS T Respiratory Rate 16 11/03/2022 8:20 AM CLEARANCE CUTTER Oxygen Saturation 97% 11/03/2022 8:20 AM CLEARANCE CUTTER Inhaled Oxygen Concentration - - Weight 110.9 kg (244 lb 8 oz) 11/02/2022 5:43 AM CLEARANCE CUTTER Height 167.6 cm (5' 6) 11/02/2022 5:43 AM CLEARANCE CUTTER Body Mass Index 39.46 11/02/2022 5:43 AM CLEARANCE CUTTER Plan of Treatment Health Maintenance Due Date Last Done Comments ADVANCE CARE PLANNING 1979 ANNUAL REVIEW OF HM ORDERS 1979 CT COLONOGRAPHY 1979 FIT 1979 FLEX SIG 1979 MAMMO SCREENING 1979 TSH W/FREE T4 REFLEX 1979 YEARLY PREVENTIVE VISIT 1979 sDNA (Cologuard) 1979 COLONOSCOPY 1989 COLORECTAL CANCER SCREENING 1989 HIV SCREENING 1994 HEPATITIS C SCREENING 1997 HEPATITIS B IMMUNIZATION (1 of 3 - 19+ 3-dose series) 1998 PAP 2000 DTAP/TDAP/TD IMMUNIZATION (1 - Tdap) 2004 LIPID 2019 COVID-19 Vaccine ( season) 2023 PHQ-2 (once per calendar year) 2023 INFLUENZA VACCINE (#1) 2024 9, 09/18/2009, 09/18/2009, Additional history exists GLUCOSE 11/02/2025 11/02/2022, 11/02/2022 HPV IMMUNIZATION Aged Out No longer e [...] on patient's age to complete this topic Procedures Procedure Name Priority Date/Time Associated Diagnosis Comments BASIC METABOLIC PANEL Routine 11/02/2022 5:45 AM CLEARANCE CUTTER from Last 3 Months or Most Recently Relevant to Health Maintenance Results * (ABNORMAL) Basic metabolic panel (11/02/2022 5:45 AM CLEARANCE CUTTER) Sodium 140 136 - 145 mmol/L 11/02/2022 6:48 AM CLEARANCE CUTTER [facility] Potassium 3.8 3.4 - 5.3 mmol/L 11/02/2022 6:48 AM CLEARANCE CUTTER [facility] Chloride 106 98 - 107 mmol/L 11/02/2022 6:48 AM CLEARANCE CUTTER N [facility] Carbon Dioxide (CO2) 23 22 - 29 mmol/L 11/02/2022 6:48 AM CLEARANCE CUTTER N [facility] Anion Gap 11 7 - 15 mmol/L 11/02/2022 6:48 AM CLEARANCE CUTTER N [facility] Urea Nitrogen 14.6 6.0 - 20.0 mg/dL 11/02/2022 6:48 AM [facility] Creatinine 0.81 0.51 - 0.95 mg/dL 11/02/2022 6:48 AM CLEARANCE CUTTER N [facility] Calcium 9.4 8.6 - 10.0 mg/dL 11/02/2022 6:48 AM [facility] Glucose 103(H) 70 - 99 mg/dL 11/02/2022 6:48 AM CLEARANCE CUTTER N [facility] GFR Estimate >90 >60 mL/min/1.7 3m2 11/02/2022 6:48 AM [facility] Comment:Effective October 232020 eGFRcr in adults is calculated using the 2020 CKD-EPI creatinine equation which includes age and gender (Sha et al., NEJM, DOI: 10.1056/LISIgt4476854) Blood STRUCTURE OF LEFT UPPER LIMB / Unknown Venipuncture / Unknown 11/02/2022 5:45 AM CLEARANCE CUTTER 11/02/2022 6:05 AM CLEARANCE CUTTER Dann Casas MD LAB - BLOOD ORDERABLES [facility] [address] [place] [address], [facility] [phone] from Last 3 Months or Most Recently Relevant to Health Maintenance Advance Directives For more information, please contact: [phone] * Full Code (Latest Code Status on File) Date Activated Date Inactivated Comments 11/02/2022 11:54 AM 11/03/2022 11:11 AM All basi c and advanced life-sustaining interventions are performed as appropriate Question Answer Comments Code status determined by: Other (please documen t) Care Teams Gift Shop Assistant Relationship Specialty Start Date End Date Gayla Hernandez MD [facility] [address] [place] [address] PCP - General Family Medicine 10/26/22
--- OUTSIDE RECORDS SUMMARY | 2024-06-12 14:45 | XMS_ITS | Referral Summary ---
Author Organization [facility] Address [address] [place] [address]. 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 REACTOR OPERATOR Pulse 74 11/03/2022 8:20 AM HEAD MVA REACTOR OPERATOR Temperature 36.7 ??C (98.1 ??F) 11/03/2022 8:20 AM CS T Respiratory Rate 16 11/03/2022 8:20 AM HEAD MVA REACTOR OPERATOR Oxygen Saturation 97% 11/03/2022 8:20 AM HEAD MVA REACTOR OPERATOR Inhaled Oxygen Concentration - - Weight 110.9 kg (244 lb 8 oz) 11/02/2022 5:43 AM HEAD MVA REACTOR OPERATOR Height 167.6 cm (5' 6) 11/02/2022 5:43 AM HEAD MVA REACTOR OPERATOR Body Mass Index 39.46 11/02/2022 5:43 AM HEAD MVA REACTOR OPERATOR Plan of Treatment Not on file Procedures Procedure Name Priority Date/Time Associated Diagnosis Comments BASIC METABOLIC PANEL Routine 11/02/2022 5:45 AM HEAD MVA REACTOR OPERATOR from Last 3 Months or Most Recently Relevant to Health Maintenance Results * (ABNORMAL) Basic metabolic panel (11/02/2022 5:45 AM HEAD MVA REACTOR OPERATOR) Sodium 140 136 - 145 mmol/L 11/02/2022 6:48 AM [facility] Potassium 3.8 3.4 - 5.3 mmol/L 11/02/2022 6:48 AM [facility] Chloride 106 98 - 107 mmol/L 11/02/2022 6:48 AM [facility] Carbon Dioxide (CO2) 23 22 - 29 mmol/L 11/02/2022 6:48 AM [facility] Anion Gap 11 7 - 15 mmol/L 11/02/2022 6:48 AM [facility] Urea Nitrogen 14.6 6.0 - 20.0 mg/dL 11/02/2022 6:48 AM [facility] Creatinine 0.81 0.51 - 0.95 mg/dL 11/02/2022 6:48 AM [facility] Calcium 9.4 8.6 - 10.0 mg/dL 11/02/2022 6:48 AM [facility] Glucose 103(H) 70 - 99 mg/dL 11/02/2022 6:48 AM [facility] GFR Estimate >90 >60 mL/min/1.7 3m2 11/02/2022 6:48 AM [facility] Comment:Effective October 232020 eGFRcr in adults is calculated using the 2020 CKD-EPI creatinine equation which includes age and gender (Sha et al., NEJM, DOI: 10.1056/RMWMhg2449622) Blood STRUCTURE OF LEFT UPPER LIMB / Unknown Venipuncture / Unknown 11/02/2022 5:45 AM HEAD MVA REACTOR OPERATOR 11/02/2022 6:05 AM HEAD MVA REACTOR OPERATOR Dann Casas MD LAB - BLOOD ORDERABLES [facility] [address] [place] [address], [facility] [phone] from Last 3 Months or Most Recently Relevant to Health Maintenance Advance Directives For more information, please contact: [phone] * Full Code (Latest Code Status on File) Date Activated Date Inactivated Comments 11/02/2022 11:54 AM 11/03/2022 11:11 AM All basi c and advanced life-sustaining interventions are performed as appropriate Question Answer Comments Code status determined by: Other (please documen t) Care Teams Chemical Engineering Professor Relationship Specialty Start Date End Date aGyla Hernandez MD [facility] & [address] [address] PCP - General Family Medicine 10/26/22
--- OUTSIDE RECORDS SUMMARY | 2024-06-12 14:46 | XMS_ITS | Clinical Summary ---
Author Organization [facility] Address [place], [place] [address] Care Team Providers Care Associate Software Developer Name Role Phone Gayla Hernandez MD Primary Care Provider + Allergies No known active allergies Medications Medication Sig Dispensed Refills Start Date End Date Status ferrous sulfate 325 mg delayed release tablet Take 1 tablet by mouth once daily with a meal. 0 10/02/2019 Active levothyroxine (SYNTHROID) 100 mcg tablet Take 100 mcg by mouth once daily. 05/29/2022 Active Tranexamic Acid 650 mg tab TAKE 2 TABLETS BY MOUTH THREE TIMES DAILY FOR 5 DAYS DURING MENSES. 07/08/2022 Active labetaloL (TRANDATE) 200 mg tablet Take 200 mg by mouth two times daily. 05/14/2022 Active amLODIPine (NORVASC) 5 mg tabletIndications:HT N (hypertension) Take 1 Tablet (5 mg) by mouth once daily. Further refills require follow-up visit with provider 01/28/23 90 Tablet 12/07/2022 Active Active Problems Problem Noted Date [...] oz) M Vag N JANEE 1 Term 11/18/00 40w0d 4.17 kg (9 lb 3 oz) [...] problems associated with this episode. Nini Fitch, RNC.....05/17/2019 7:52 AM Hypothyroidism (acquired) [...] PLANS: REFERRING PHYSICIAN & PHONE: Dr Chayo [facility]UG[facility] [place] ([phone]) SPECIALISTS & PHONE: HENNA: CARE COORDINATION: MEDS: [...] Outcome GA Total Labor Labor/2nd/3rd Weight Sex Type Anes PTL Janee A1 A5 Name Clin 1999 Term 40w 0d 4.17 kg (9 lb 3 oz) M Vag N Living 2001 Term 40w 0d 3.52 kg (7 lb 12 oz) M Vag N Living 2003 Term 40w 0d 4.08 kg (9 lb) M Vag N Living 2005 Term 4.05 kg (8 lb 15 oz) F Vag N Living 7 SAB 8w0 d 8 SAB 10w 0d 8 SAB 17w 0d 2008 Term 4.05 kg (8 lb 15 oz) F Vag N Living 0 SAB 19w 0d 1 SAB 6w0 d 1 SAB 13w 0d 2 SAB 14w 0d 3 SAB 5w0 d 4 SAB 4w0 d 2015 Term 38w 2d Vag Living Last Filed Vital Signs Vital Sign Reading [...] Health Maintenance Due Date Last Done Comments Tdap 1990 Tetanus booster 1999 Depression screening for age 12+ 05/16/2020 05/16/2019, 05/01/2019, 03/01/2017, Additional history exists BMI (ht and wt on same day) for age 18+ 07/21/2023 07/21/2022, 11/16/2019, 05/16/2019, Additional history exists COVID-19 vaccine series ( season) 2023 Colonoscopy through age 75 2024 Lipids for age 45-75 2024 Mammogram for age 45-75 2024 Influenza for age 9-49 07/23/2024 9, 09/22/2007, 08/25/2004 Pap test for age 21-65 05/14/2025 , 05/14/2022, 05/01/2011 HIV for age 15-65 Completed 05/01/2019, 12/13/2015 Hepatitis C screening for age 18-79 Completed 05/01/2019 Pneumococcal series for age 6-64 Aged Out No longer eligible based on patient's age to complete this topic Goals Goal Patient Goal Type Associated Problems Recent Progress Patient-Stated? Author BLOOD PRESSURE - Maintains BP less than 130/80 Blood Pressure No Whitley Alcocer MD Procedures Procedure Name Priority Date/Time Associated Diagnosis Comments HPV THIN PREP Routine 05/14/2022 8:06 AM CDT ANTI HIV 1/2 Routine 05/01/2019 4:31 PM CDT Encounter for supervision of normal first in first trimester ANTI HCV Routine 05/01/2019 4:31 PM CDT Encounter for supervision of normal first in first trimester from Last 3 Months or Most Recently Relevant to Health Maintenance Results * HPV HIGH RISK (05/14/2022 8:06 AM CDT) TYPE 16 Negative Negative 05/18/2022 11:09 AM CDT [facility] TYPE 18 Negative Negative 05/18/2022 11:09 AM CDT [facility] OTHER HIGH RISK TYPES Negative Negative 05/18/2022 11:09 AM CDT [facility] Other (Cervical) 05/14/2022 8:06 AM CDT 05/14/2022 5:58 PM [facility] 05/18/2022 11:09 AM CDT HPV types 16, 18, 31, 33, 35, 39, 45, 51, 52, 56, 58, 59, 66 and 68 DNA were undetectable or below the pre-set threshold. Methodology: [employer] 4800 HPV Test Gayla Hernandez MD [employer] [facility] [address] [place] [address], * ANTI HCV (05/01/2019 4:31 PM CDT) HEPATITIS C ANTIBODY Non-React marley Non-React marley 05/02/2019 2:42 PM CDT [facility] Comment:Antibodies to HCV no t detected; does not exclude the possibility of exposure to HCV. Blood BLOOD SPECIMEN / Unknown Venipuncture / Unknown 05/01/2019 4:31 PM CDT 05/01/2019 4:31 PM CDT [place] COLLINS SEND OUTS Performing Organization Address City/[facility]/ZIP Co de Phone Number [facility] [address] [place] [address], [place] * ANTI HIV 1/2 (05/01/2019 4:31 PM CDT) HIV-1/HIV-2 ANTIBODY Non-Reacti ve Non-Reacti ve 05/02/2019 2:44 PM CDT [facility] Comment:HIV-1 p24 and HIV-1/ HIV-2 Ab not detected. Blood BLOOD SPECIMEN / Unknown Venipuncture / Unknown 05/01/2019 4:31 PM CDT 05/01/2019 4:31 PM CDT [place] COLLINS SEND OUTS [facility] [address] [place] [address], from Last 3 Months or Most Recently Relevant to Health Maintenance Advance Directives * Full Code (Latest Code Status on File) Date Activated Date Inactivated Comments 08/03/2022 4:25 PM 08/04/2022 2:02 AM Question Answer Comments Code Status Discussion: Other (specify in commen ts): Care Teams Associate Software Developer Relationship Specialty Start Date End Date Gayla Hernandez MD [address] [place] [address] PCP - General Family Practice 07/21/22
== END 2024-06-09 08:41 | disposition home or self-care (01) ==
LOC: NFLDREF 06-12 14:40
PROVIDERS: PCP Family Medicine; Referring Provider Family Medicine; Visit Provider Family Medicine
DX: E78.5 Hyperlipidemia, unspecified (principal); E03.8 Other specified hypothyroidism; E06.3 Autoimmune thyroiditis; I10 Essential (primary) hypertension
CPT/HCPCS: 80053; 80061; 84439; 84443